=== PATIENT | male | born 1980 | race Hispanic/Latino ===

== ENCOUNTER 2018-12-14 18:55 | Emergency (ER) | payer SELFPAY ==
--- OUTSIDE RECORDS SUMMARY | 2018-12-14 18:58 | XMS REPORT ---
:1980 [facility] Mckeon [address] [place] [id number] Care Team Providers Name Role Phone Unavailable Unavailable Unavailable Problems This patient has no known problems. Allergies, Adverse Reactions, Alerts This patient has no known allergies or adverse reactions. Medications This patient has no known medications.
[2018-12-14] MEDS ORDERED: NA CHLORIDE 0.9% 1,000 ML ONE (19:48)
--- NOTE | 2018-12-14 20:10 | RAD REPORT ---
EXAM DESCRIPTION: RAD - Chest Single View - 12/14/2018 8:01 pm CLINICAL HISTORY: syncope Chest pain. COMPARISON: Chest Single View dated 07/02/2017; Chest Single View dated 04/05/2017 FINDINGS: Portable technique limits examination quality. The lungs are grossly clear. The heart is normal in size. No displaced fractures. IMPRESSION: No acute intrathoracic process suspected.
[2018-12-14 20:28] LABS: Absolute Lymphocytes (CBC) 2.2 K/uL (0.7-4.9); Basophils % 0.5 % (0-1.3); Eosinophils % 0.2 % (0-4.4); Hematocrit 46.4 % (39.6-49.0); MPV 9.5 fL (7.6-11.3); Monocytes % 8.7 % (3.3-12.3); RBC Red Blood Cell Count 4.86 M/uL (4.33-5.43)
[2018-12-14 20:29] LABS: Protime INR 1.02
[2018-12-14 20:44] LABS: ALT/SGPT 84 U/L (12-78); AST/SGOT 75 U/L (15-37); Albumin 3.7 g/dL (3.4-5.0); Alkaline Phosphatase 130 U/L (45-117); BUN Blood Urea Nitrogen 9 mg/dL (7-18); Bicarbonate 27 mmol/L (21-32); Bilirubin Direct 0.3 mg/dL (0-0.2); Bilirubin Total 0.7 mg/dL (0.2-1.0); Glucose Level 94 mg/dL (74-106); Magnesium 2.1 mg/dL (1.8-2.4); NT PRO-BNP 318 pg/mL (<125); Potassium 3.6 mmol/L (3.5-5.1); Sodium Level 141 mmol/L (136-145); Troponin (Emerg Dept Use Only) < 0.02 ng/mL (0.0-0.045)
--- NOTE | 2018-12-14 22:24 | ER ---
Nurse's Notes [facility] Name: Zana Salmon Age: 38 yrs Sex: Male : 1980 Arrival Date: 12/14/2018 Time: 19:07 Bed 5 Private MD: Diagnosis: Syncope and collapse Presentation: 12/14 19:08 Presenting complaint: Patient states: Syncopal episode while in alf, denies injury, hx ph of [place], denies chest pain, N/V or SOB. Transition of care: patient was not received from another setting of care. Onset of symptoms was December 14, 2018. Risk Assessment: Do you want to hurt yourself or someone else? Patient reports no desire to harm self or others. Initial Sepsis Screen: Does the patient meet any 2 criteria? No. Patient's initial sepsis screen is negative. Does the patient have a suspected source of infection? No. Patient's initial sepsis screen is negative. Care prior to arrival: None. 19:08 Method Of Arrival: Law Enforcement: 19:08 Acuity: DELANO 3 ph Historical: - Allergies: 19:10 No Known Allergies; hb - Home Meds: 19:10 aspirin Oral [Active]; atorvastatin oral oral [Active]; Lisinopril Oral [Active]; hb - PMHx: 19:10 Hepatitis; Hypertension; Myocardial infarction; hb - PSHx: 19:10 Heart stents; hb - Immunization history:: Adult Immunizations up to date. - Social history:: Smoking status: Patient/guardian denies using tobacco. - Ebola Screening: : No symptoms or risks identified at this time. Screenin:11 Abuse screen: Denies threats or abuse. Denies injuries from another. Nutritional hb screening: No deficits noted. Tuberculosis screening: No symptoms or risk factors identified. Fall Risk None identified. Assessment: 19:11 General: Appears in no apparent distress. comfortable, slender, Behavior is calm, ph cooperative, agitated, Denies fever. Pain: Denies pain. Neuro: Level of Consciousness is awake, alert, obeys commands, Oriented to person, place, time, situation. Cardiovascular: Reports syncope, Denies chest pain, fatigue, nausea, shortness of breath, Capillary refill < 3 seconds in bilateral fingers Patient's skin is warm and dry. Respiratory: Airway is patent Respiratory effort is even, unlabored, Respiratory pattern is regular, symmetrical. GI: No signs and/or symptoms were reported involving the gastrointestinal system. Derm: Skin is intact, is healthy with good turgor, Skin is pink, warm \T\ dry. Musculoskeletal: Circulation, motion, and sensation intact. Range of motion: intact in all extremities. 19:35 General: Appears in no apparent distress. comfortable, Behavior is calm, cooperative, rr5 appropriate for age, Denies fever. 19:35 Pain: Denies pain. Neuro: Level of Consciousness is awake, alert, obeys commands, rr5 Oriented to person, place, time, situation, Appropriate for age Flavorings Compounder are equal bilaterally Moves all extremities. Full function Gait is steady, Speech is normal. Cardiovascular: Capillary refill < 3 seconds in bilateral Patient's skin is warm and dry. Respiratory: Airway is patent Respiratory effort is even, unlabored, Respiratory pattern is regular, symmetrical. GI: No signs and/or symptoms were reported involving the gastrointestinal system. : No signs and/or symptoms were reported regarding the genitourinary system. EENT: No signs and/or symptoms were reported regarding the EENT system. Derm: Skin is intact, is healthy with good turgor, Skin is pink, warm \T\ dry. Musculoskeletal: Circulation, motion, and sensation intact. Range of motion: intact in all extremities. 20:30 Reassessment: Patient appears in no apparent distress at this time. Patient is alert, rr5 oriented x 3, equal unlabored respirations, skin warm/dry/pink. snacks given with good appetite. awaiting for laboratory results. 21:15 Reassessment: Patient appears in no apparent distress at this time. Patient is alert, rr5 oriented x 3, equal unlabored respirations, skin warm/dry/pink. repeat troponin extracted and sent to laboratory. 22:30 Reassessment: Patient appears in no apparent distress at this time. Patient is alert, rr5 oriented x 3, equal unlabored respirations, skin warm/dry/pink. discharge instruction given and explained without complaints made. escorted by alf security. Patient denies pain at this time. Patient states feeling better. Patient states symptoms have improved. Vital Signs: 19:05 BP 126 / 72; Pulse 53; Resp 16; Temp 98.4; Pulse Ox 97% on R/A; Weight 72.57 kg; Height hb 5 ft. 8 in. (172.72 cm); Pain 0/10; 20:00 BP 115 / 70; Pulse 56; Resp 16; Pulse Ox 98% ; rr5 21:00 BP 119 / 82; Pulse 59; Resp 17; Temp 98.3; Pulse Ox 99% ; rr5 22:05 BP 125 / 75; Pulse 57; Resp 16; Pulse Ox 99% ; Pain 0/10; rr5 22:25 BP 110 / 74; Pulse 85; Resp 16; Temp 98.5; Pulse Ox 99% on R/A; rr5 19:05 Body Mass Index 24.33 (72.57 kg, 172.72 cm) hb ED Course: 19:00 Patient has correct armband on for positive identification. Bed in low position. Call hb light in reach. Side rails up X 1. monitoring analyst on. Pulse ox on. NIBP on. 19:07 Patient arrived in ED. ph 19:07 Norma Parson FNP-C [facility]. snw 19:07 Alex Callahan MD is Attending Physician. snw 19:09 Arm band placed on. hb 19:11 Triage completed. ph 19:30 Damion Lai, MAGDALENA is Primary Nurse. rr5 19:39 XRAY Chest (1 view) In Process Unspecified. EDMS 20:15 Inserted saline lock: 20 gauge in left forearm, using aseptic technique. Blood rr5 collected. 21:20 Repeat lab(s) drawn. by nm, sent to lab. rr5 22:30 No provider procedures requiring assistance completed. IV discontinued, intact, rr5 bleeding controlled, No redness/swelling at site. Pressure dressing applied. Administered Medications: 20:15 Drug: NS 0.9% 1000 ml Route: IV; Rate: 75 ml/hr; Site: left forearm; rr5 22:20 Follow up: Response: No adverse reaction; IV Status: Order to discontinue infusion; IV rr5 Intake: 150ml Intake: 22:20 IV: 150ml; Total: 150ml. rr5 Outcome: 22:23 Discharge ordered by . snw 22:30 Discharged to Law Enforcement rr5 22:30 Condition: stable 22:30 Discharge instructions given to patient, Instructed on discharge instructions, follow up and referral plans. Demonstrated understanding of instructions, follow-up care. 22:32 Patient left the ED. rr5 Signatures: Dispatcher [employer] EDMS Norma Parson, ARIELLEC COMPLAINT OPERATOR-Jcw Dalila Peoples, RN RN Samantha Duarte RN RN Damion Talamantes RN RN rr5
--- NOTE | 2018-12-14 22:24 | EDPHYS ---
Physician Documentation [facility] Name: Zana Salmon Age: 38 yrs Sex: Male : 1980 Arrival Date: 12/14/2018 Time: 19:07 Bed 5 Private MD: ED Physician Alex Callahan HPI: 12/14 19:07 This 38 yrs old Male presents to ER via Unassigned with complaints of syncope. snw 19:07 The patient has experienced syncope, collapsed. Onset: The symptoms/episode snw began/occurred suddenly, and became persistent. Duration: This was a single episode, that lasted an unknown period of time. Context: the episode(s) was witnessed, by police, occurred on a street or driveway, occurred while the patient was being arrested. Just prior to the episode the patient experienced no apparent symptoms. Associated injury: The patient did not suffer any apparent associated injury. Associated signs and symptoms: The patient has no apparent associated signs or symptoms. MA x one. The patient has not recently seen a physician. Historical: - Allergies: 19:10 No Known Allergies; hb - Home Meds: 19:10 aspirin Oral [Active]; atorvastatin oral oral [Active]; Lisinopril Oral [Active]; hb - PMHx: 19:10 Hepatitis; Hypertension; Myocardial infarction; hb - PSHx: 19:10 Heart stents; hb - Immunization history:: Adult Immunizations up to date. - Social history:: Smoking status: Patient/guardian denies using tobacco. - Ebola Screening: : No symptoms or risks identified at this time. ROS: 19:07 Constitutional: Negative for fever, chills, and weight loss, Eyes: Negative for injury, snw pain, redness, and discharge, ENT: Negative for injury, pain, and discharge, Neck: Negative for injury, pain, and swelling, Cardiovascular: Negative for chest pain, palpitations, and edema, Respiratory: Negative for shortness of breath, cough, wheezing, and pleuritic chest pain, Abdomen/GI: Negative for abdominal pain, nausea, vomiting, diarrhea, and constipation, Back: Negative for injury and pain, : Negative for injury, bleeding, discharge, and swelling, MS/Extremity: Negative for injury and deformity, Skin: Negative for injury, rash, and discoloration. 19:07 Neuro: Positive for syncope. 19:07 Psych: Positive for anxiety. Exam: 19:10 Constitutional: This is a well developed, well nourished patient who is awake, alert, snw and in no acute distress. Head/Face: Normocephalic, atraumatic. Eyes: Pupils equal round and reactive to light, extra-ocular motions intact. Lids and lashes normal. Conjunctiva and sclera are non-icteric and not injected. Cornea within normal limits. Periorbital areas with no swelling, redness, or edema. ENT: Nares patent. No nasal discharge, no septal abnormalities noted. Tympanic membranes are normal and external auditory canals are clear. Oropharynx with no redness, swelling, or masses, exudates, or evidence of obstruction, uvula midline. Mucous membranes moist. Neck: Trachea midline, no thyromegaly or masses palpated, and no cervical lymphadenopathy. Supple, full range of motion without nuchal rigidity, or vertebral point tenderness. No Meningismus. Chest/axilla: Normal chest wall appearance and motion. Nontender with no deformity. No lesions are appreciated. Cardiovascular: Regular rate and rhythm with a normal S1 and S2. No gallops, murmurs, or rubs. Normal PMI, no JVD. No pulse deficits. Respiratory: Lungs have equal breath sounds bilaterally, clear to auscultation and percussion. No rales, rhonchi or wheezes noted. No increased work of breathing, no retractions or nasal flaring. Abdomen/GI: Soft, non-tender, with normal bowel sounds. No distension or tympany. No guarding or rebound. No evidence of tenderness throughout. Back: No spinal tenderness. No costovertebral tenderness. Full range of motion. Skin: Warm, dry with normal turgor. Normal color with no rashes, no lesions, and no evidence of cellulitis. MS/ Extremity: Pulses equal, no cyanosis. Neurovascular intact. Full, normal range of motion. Neuro: Awake and alert, GCS 15, oriented to person, place, time, and situation. Cranial nerves II-XII grossly intact. Motor strength 5/5 in all extremities. Sensory grossly intact. Cerebellar exam normal. Normal gait. Psych: Awake, alert, with orientation to person, place and time. Behavior, mood, and affect are within normal limits. Vital Signs: 19:05 BP 126 / 72; Pulse 53; Resp 16; Temp 98.4; Pulse Ox 97% on R/A; Weight 72.57 kg; Height hb 5 ft. 8 in. (172.72 cm); Pain 0/10; 20:00 BP 115 / 70; Pulse 56; Resp 16; Pulse Ox 98% ; rr5 21:00 BP 119 / 82; Pulse 59; Resp 17; Temp 98.3; Pulse Ox 99% ; rr5 22:05 BP 125 / 75; Pulse 57; Resp 16; Pulse Ox 99% ; Pain 0/10; rr5 22:25 BP 110 / 74; Pulse 85; Resp 16; Temp 98.5; Pulse Ox 99% on R/A; rr5 19:05 Body Mass Index 24.33 (72.57 kg, 172.72 cm) hb MDM: 19:11 Patient medically screened. snw 22:24 ECG was reviewed by the Attending Physician. Data reviewed: vital signs, nurses notes. snw Data interpreted: Pulse oximetry: on room air is 99 %. Interpretation: normal. Counseling: I had a detailed discussion with the patient and/or guardian regarding: the historical points, exam findings, and any diagnostic results supporting the discharge/admit diagnosis, the presence of at least one elevated blood pressure reading (>120/80) during this emergency department visit, lab results, radiology results, the need for outpatient follow up, to return to the emergency department if symptoms worsen or persist or if there are any questions or concerns that arise at home. Special discussion: Based on the patient's history, exam, and Dx evaluation, there is no indication for emergent intervention or inpatient Tx. It is understood by the patient/guardian that if the Sx's persist or worsen they need to return immediately for re-evaluation. I have referred the patient to see his PCP for further evaluation of high blood pressure. Based on the history and exam findings, there is no indication for further emergent testing or inpatient evaluation. I discussed with the patient/guardian the need to see the pediatric care coordinator for further evaluation of the symptoms. I discussed with the patient/guardian the need to see the primary care provider for further evaluation of the symptoms. 12/14 19:12 Order name: Basic Metabolic Panel snw 12/14 19:12 Order name: CBC with Diff snw 12/14 19:12 Order name: LFT's snw 12/14 19:12 Order name: Magnesium [facility] 12/14 19:12 Order name: NT PRO-BNP; Complete Time: 20:45 snw 12/14 19:12 Order name: PT-INR; Complete Time: 20:32 snw 12/14 19:12 Order name: Troponin (emerg Dept Use Only); Complete Time: 20:45 snw 12/14 19:12 Order name: XRAY Chest (1 view); Complete Time: 20:13 snw 12/14 19:13 Order name: Basic Metabolic Panel; Complete Time: 20:45 EDMS 12/14 19:13 Order name: CBC with Automated Diff; Complete Time: 20:32 EDMS 12/14 19:13 Order name: Liver (Hepatic) Function; Complete Time: 20:45 EDMS 12/14 19:13 Order name: Magnesium; Complete Time: 20:45 EDMS 12/14 21:01 Order name: Troponin (emerg Dept Use Only); Complete Time: 21:57 snw 12/14 19:12 Order name: EKG; Complete Time: 19:13 w 12/14 19:12 Order name: Cardiac monitoring; Complete Time: 19:14 w 12/14 19:12 Order name: EKG - Nurse/Tech; Complete Time: 20:24 w 12/14 19:12 Order name: IV Saline Lock; Complete Time: 20:24 w 12/14 19:12 Order name: Labs collected and sent; Complete Time: 20:24 w 12/14 19:12 Order name: O2 Per Protocol; Complete Time: 19:14 w 12/14 19:12 Order name: O2 Sat Monitoring; Complete Time: 19:14 w 12/14 21:01 Order name: EKG; Complete Time: 21:02 snw Administered Medications: 20:15 Drug: NS 0.9% 1000 ml Route: IV; Rate: 75 ml/hr; Site: left forearm; rr5 22:20 Follow up: Response: No adverse reaction; IV Status: Order to discontinue infusion; IV rr5 Intake: 150ml Disposition: 12/15 00:38 Co-signature as Attending Physician, Alex Callahan MD. pkl Disposition: 12/14/18 22:23 Discharged to Home. Impression: Syncope and collapse. - Condition is Stable. - Discharge Instructions: Hypertension, Syncope. - Medication Reconciliation Form, Thank You Letter, Antibiotic Education, Prescription Opioid Use form. - Follow up: Private Physician; When: Tomorrow; Reason: Recheck today's complaints, Continuance of care, Re-evaluation by your physician. Follow up: Emergency Department; When: As needed; Reason: Worsening of condition. Signatures: Dispatcher [employer] EDMS Alex Callahan MD MD pkl Therrien, Shelly, DIGITAL FORENSICS INVESTIGATOR-C DIGITAL FORENSICS INVESTIGATOR-Csnw Samantha Dawson, MAGDALENA RN Damion Lai RN RN rr5 Corrections: (The following items were deleted from the chart) 12/14 22:32 22:23 12/14/2018 22:23 Discharged to Home. Impression: Syncope and collapse. Condition rr5 is Stable. Forms are Medication Reconciliation Form, Thank You Letter, Antibiotic Education, Prescription Opioid Use. Follow up: Private Physician; When: Tomorrow; Reason: Recheck today's complaints, Continuance of care, Re-evaluation by your physician. Follow up: Emergency Department; When: As needed; Reason: Worsening of condition. snw
--- NOTE | 2018-12-15 07:21 | EKG ---
Test Date: 2018-12-14 Test Time: 20:13:55 Plastic Tile Setter: NIKITA MEASUREMENT RESULTS: Intervals: Rate: 55 NM: 140 QRSD: 98 QT: 414 QTc: 396 Karthaus: P: 58 NM: 140 QRS: 108 T: 15 INTERPRETIVE STATEMENTS: Sinus bradycardia Rightward axis Borderline ECG Compared to ECG 07/02/2017 17:05:13 Sinus rhythm no longer present Sinus arrhythmia no longer present Electronically Signed On 12-15-18 07:20:36 CDT by Sanket Cedeño
--- NOTE | 2018-12-15 07:21 | EKG ---
Test Date: 2018-12-14 Test Time: 21:30:07 Test And Turn Up Technician: RR MEASUREMENT RESULTS: Intervals: Rate: 52 WY: 148 QRSD: 106 QT: 436 QTc: 405 [place]: P: 65 WY: 148 QRS: 104 T: 16 INTERPRETIVE STATEMENTS: Sinus bradycardia Rightward axis Borderline ECG Compared to ECG 12/14/2018 20:13:55 No significant changes Electronically Signed On 12-15-18 07:20:33 CDT by Sanket Cedeño
== END 2018-12-14 22:32 | disposition home or self-care (01) ==
LOC: ER 18:55
DX: R55 Syncope and collapse (principal); I10 Essential (primary) hypertension; I25.2 Old myocardial infarction; Z79.82 Long term (current) use of aspirin
CPT/HCPCS: 36415; 71045; 80048; 80076; 83735; 83880; 84484; 85025; 85610; 93005; 96360; 96361; 99284; J7030

== ENCOUNTER 2019-01-13 14:44 | Observation (INO) | payer SELFPAY ==
--- OUTSIDE RECORDS SUMMARY | 2019-01-13 14:47 | XMS REPORT ---
:1980 [facility] Mckeon [address] [place] [id number] Care Team Providers Name Role Phone Unavailable Unavailable Unavailable Problems This patient has no known problems. Allergies, Adverse Reactions, Alerts This patient has no known allergies or adverse reactions. Medications This patient has no known medications.
--- NOTE | 2019-01-13 15:45 | RAD REPORT ---
EXAM DESCRIPTION: RAD - Chest Single View - 01/13/2019 3:40 pm CLINICAL HISTORY: CHEST PAIN Chest pain. COMPARISON: Chest Single View dated 12/14/2018; Chest Single View dated 07/02/2017; Chest Single View d ated 04/05/2017 FINDINGS: Portable technique limits examination quality. The lungs are grossly clear. The heart is normal in size. No displaced fractures. IMPRESSION: No acute intrathoracic process suspected.
[2019-01-13 15:54] LABS: Absolute Lymphocytes (CBC) 3.3 K/uL (0.7-4.9); Basophils % 0.3 % (0-1.3); Hematocrit 46.8 % (39.6-49.0); Lymphocytes % 47.9 % (15.3-44.8); RBC Red Blood Cell Count 4.97 M/uL (4.33-5.43)
[2019-01-13] MEDS ORDERED: NA CHLORIDE 0.9% 1,000 ML ONE (15:55)
[2019-01-13 15:58] LABS: Protime INR 1.01
[2019-01-13 16:29] LABS: ALT/SGPT 60 U/L (12-78); AST/SGOT 53 U/L (15-37); Albumin 3.8 g/dL (3.4-5.0); Alkaline Phosphatase 120 U/L (45-117); BUN Blood Urea Nitrogen 9 mg/dL (7-18); Bicarbonate 27 mmol/L (21-32); Bilirubin Direct 0.3 mg/dL (0-0.2); Bilirubin Total 1.1 mg/dL (0.2-1.0); Glucose Level 78 mg/dL (74-106); Potassium 3.7 mmol/L (3.5-5.1); Protein, Total 8.1 g/dL (6.4-8.2); Sodium Level 140 mmol/L (136-145)
[2019-01-13 16:30] LABS: Creatine Phosphokinase 122 U/L (39-308); Magnesium 2.4 mg/dL (1.8-2.4); NT PRO-BNP 262 pg/mL (<125); Troponin (Emerg Dept Use Only) < 0.02 ng/mL (0.0-0.045)
[2019-01-13 16:43] LABS: Urine Blood TRACE (NEG); Urine Glucose NEGATIVE (NEG); Urine Protein NEGATIVE (NEG)
--- NOTE | 2019-01-13 17:12 | ER ---
Nurse's Notes [facility] Name: Zana Salmon Age: 38 yrs Sex: Male : 1980 Arrival Date: 01/13/2019 Time: 14:47 Bed 18 Private MD: Diagnosis: Chest pain, unspecified Presentation: 01/13 14:50 Presenting complaint: EMS states: chest pain that started while working outside, denies em nausea or vomiting, described as pressure, pt reports "I feel dehydrated" hx of MT and cardiac stents. Transition of care: patient was not received from another setting of care. Onset of symptoms was January 13, 2019. Risk Assessment: Do you want to hurt yourself or someone else? Patient reports no desire to harm self or others. Initial Sepsis Screen: Does the patient meet any 2 criteria? No. Patient's initial sepsis screen is negative. Does the patient have a suspected source of infection? No. Patient's initial sepsis screen is negative. Care prior to arrival: None. 14:50 Method Of Arrival: EMS: [facility] em 15:30 Acuity: DELANO 3 la1 Historical: - Allergies: 14:53 No Known Allergies; em - Home Meds: 14:53 Aspirin Oral [Active]; atorvastatin Oral [Active]; lisinopril Oral [Active]; em - PMHx: 14:53 Hepatitis; Hypertension; Myocardial infarction; em - PSHx: 14:53 Heart stents; em - Immunization history:: Adult Immunizations not up to date. - Social history:: Smoking status: Patient uses tobacco products, denies chronic smoking, but will smoke occasionally. - Ebola Screening: : Patient negative for fever greater than or equal to 101.5 degrees Fahrenheit, and additional compatible Ebola Virus Disease symptoms Patient denies exposure to infectious person Patient denies travel to an Ebola-affected area in the 21 days before illness onset No symptoms or risks identified at this time. Screenin:53 Abuse screen: Denies threats or abuse. Nutritional screening: No deficits noted. em Tuberculosis screening: No symptoms or risk factors identified. Fall Risk None identified. Assessment: 14:53 General: Appears in no apparent distress. comfortable, Behavior is calm, cooperative, em Denies fever. Pain: Complains of pain in mid-sternal area Pain currently is 5 out of 10 on a pain scale. Pain began 1 hour ago. Neuro: Level of Consciousness is awake, alert, obeys commands, Oriented to person, place, time, situation, Denies weakness. Cardiovascular: Capillary refill < 3 seconds Patient's skin is warm and dry. Rhythm is sinus rhythm. Respiratory: Airway is patent Respiratory effort is even, unlabored, Respiratory pattern is regular, symmetrical. GI: Patient currently denies nausea, vomiting. Derm: Skin is intact, is healthy with good turgor, Skin is pink, warm \\T\\ dry. Musculoskeletal: Capillary refill < 3 seconds, Range of motion: intact in all extremities. 16:04 Reassessment: Patient appears in no apparent distress at this time. Patient states em feeling better. 16:47 Reassessment: Patient appears in no apparent distress at this time. Patient and/or em family updated on plan of care and expected duration. Pain level reassessed. Patient is alert, oriented x 3, equal unlabored respirations, skin warm/dry/pink. 17:35 Reassessment: Patient appears in no apparent distress at this time. Patient and/or em family updated on plan of care and expected duration. Pain level reassessed. Patient is alert, oriented x 3, equal unlabored respirations, skin warm/dry/pink. Dr. Alvares at bedside Patient states feeling better. 18:21 Reassessment: Patient appears in no apparent distress at this time. Patient and/or em family updated on plan of care and expected duration. Pain level reassessed. Patient is alert, oriented x 3, equal unlabored respirations, skin warm/dry/pink. Patient denies pain at this time. Patient states feeling better. Patient states symptoms have improved. Vital Signs: 14:53 BP 103 / 70; Pulse 74; Resp 18; Temp 98.4(O); Pulse Ox 99% on R/A; Weight 72.57 kg; em Height 5 ft. 8 in. (172.72 cm); Pain 5/10; 16:05 BP 132 / 86; Pulse 68; Resp 18; Pulse Ox 100% on R/A; Pain 5/10; em 17:35 BP 129 / 86; Pulse 71; Resp 16; Pulse Ox 99% on R/A; em 18:28 BP 123 / 92; Pulse 55; Resp 18; Pulse Ox 99% on R/A; Pain 0/10; em 14:53 Body Mass Index 24.33 (72.57 kg, 172.72 cm) em ED Course: 14:47 Patient arrived in ED. ms 14:49 Henry Grayson LVN is Primary Nurse. em 14:53 Arm band placed on. em 14:53 Patient has correct armband on for positive identification. Bed in low position. Call em light in reach. disability program navigator on. Pulse ox on. NIBP on. 14:53 Maintain EMS IV. Dressing intact. Good blood return noted. Site clean \\T\\ dry. Gauge \\T\\ em site: 20 LAC. 15:23 Greyson Espinal PA is PHCP. [facility] 15:23 Froylan Aceves MD is Attending Physician. m 15:24 EKG done, by mechanical tech. reviewed by Froylan Aceves MD. 3 15:30 Triage completed. la1 15:41 XRAY Chest (1 view) In Process Unspecified. EDMS 17:11 Joselito Alvares MD is Hospitalizing Provider. [facility] 18:20 No provider procedures requiring assistance completed. Patient admitted, IV remains in em place. Administered Medications: 16:00 Drug: NS 0.9% 1000 ml Route: IV; Rate: 1 bolus; Site: right forearm; em 17:11 Follow up: IV Status: Completed infusion; IV Intake: 1000ml em 17:20 Drug: Aspirin Chewable Tablet 324 mg Route: PO; rv 18:22 Follow up: Response: No adverse reaction em Intake: 17:11 IV: 1000ml; Total: 1000ml. em Outcome: 17:11 Decision to Hospitalize by Provider. [facility] 18:20 Admitted to Tele accompanied by tech, via wheelchair, room 212, with chart, Report em called to MAGDALENA Bennett 18:20 Condition: good 18:20 Instructed on the need for admit, Demonstrated understanding of instructions. 18:29 Patient left the ED. em Signatures: Dispatcher [employer] EDMS Greyson Espinal PA PA jmm Munoz, Edgar, LVN LVN em Evelyne Ulloa ms GarciaSanto allen, RN RN la1 Yanna Lewis sm3 Jerry Krause, RN RN rv
--- NOTE | 2019-01-13 17:13 | EDPHYS ---
Physician Documentation [facility] Name: Zana Salmon Age: 38 yrs Sex: Male : 1980 Arrival Date: 01/13/2019 Time: 14:47 Bed 18 Private MD: ED Physician Froylan Aceves HPI: 01/13 15:20 This 38 yrs old Male presents to ER via EMS with complaints of Chest Pain. jmm 15:20 The patient or guardian reports chest pain that is located primarily in the substernal [facility] area. Onset: .5 hour(s) ago. The pain does not radiate. Duration: The patient or guardian reports a single episode, that is still ongoing, but improving. Modifying factors: The symptoms are alleviated by nothing. the symptoms are aggravated by nothing. This is a 38 year old male with a history of htn, [place], CAD that presents to the ED with complaints of substernal chest pain which began approx 45 min prior to arrival. Patient describes the pain as if the wind got knocked out of his chest. States symptoms are no improving. . Historical: - Allergies: 14:53 No Known Allergies; em - Home Meds: 14:53 Aspirin Oral [Active]; atorvastatin Oral [Active]; lisinopril Oral [Active]; em - PMHx: 14:53 Hepatitis; Hypertension; Myocardial infarction; em - PSHx: 14:53 Heart stents; em - Immunization history:: Adult Immunizations not up to date. - Social history:: Smoking status: Patient uses tobacco products, denies chronic smoking, but will smoke occasionally. - Ebola Screening: : Patient negative for fever greater than or equal to 101.5 degrees Fahrenheit, and additional compatible Ebola Virus Disease symptoms Patient denies exposure to infectious person Patient denies travel to an Ebola-affected area in the 21 days before illness onset No symptoms or risks identified at this time. ROS: 15:20 Constitutional: Negative for fever, chills, and weight loss. jmm 15:20 Abdomen/GI: Negative for abdominal pain, nausea, vomiting, diarrhea, and constipation. 15:20 Cardiovascular: Positive for chest pain. 15:20 Respiratory: Positive for shortness of breath. 15:20 All other systems are negative. Exam: 15:20 Constitutional: This is a well developed, well nourished patient who is awake, alert, jmm and in no acute distress. Head/Face: atraumatic. Eyes: EOMI, no conjunctival erythema appreciated ENT: Moist Mucus Membranes Neck: Trachea midline, Supple Chest/axilla: Normal chest wall appearance and motion. 15:20 Abdomen/GI: Non distended, soft Back: Normal ROM Skin: General appearance color normal MS/ Extremity: Moves all extremities, no obvious deformities appreciated, no edema noted to the lower extremities Neuro: Awake and alert, normal gait Psych: Behavior is normal, Mood is normal, Patient is cooperative and pleasant 15:20 Cardiovascular: Rate: normal, Rhythm: regular. 15:20 Respiratory: the patient does not display signs of respiratory distress, Respirations: normal, Breath sounds: are clear throughout. 15:47 ECG was reviewed by the Attending Physician. [facility] Vital Signs: 14:53 BP 103 / 70; Pulse 74; Resp 18; Temp 98.4(O); Pulse Ox 99% on R/A; Weight 72.57 kg; em Height 5 ft. 8 in. (172.72 cm); Pain 5/10; 16:05 BP 132 / 86; Pulse 68; Resp 18; Pulse Ox 100% on R/A; Pain 5/10; em 17:35 BP 129 / 86; Pulse 71; Resp 16; Pulse Ox 99% on R/A; em 18:28 BP 123 / 92; Pulse 55; Resp 18; Pulse Ox 99% on R/A; Pain 0/10; em 14:53 Body Mass Index 24.33 (72.57 kg, 172.72 cm) em MDM: 15:27 Patient medically screened. [facility] 17:08 The patient was given aspirin in the Emergency Department. Data reviewed: vital signs, [facility] nurses notes, lab test result(s), radiologic studies, plain films. ED course: Patient will be admitted due to cardiac risk factors. I discussed the patient with Dr. Alvares whom accepted admission. . 01/13 15:25 Order name: Basic Metabolic Panel; Complete Time: 16:31 [facility] 01/13 15:25 Order name: CBC with Diff; Complete Time: 16:31 [facility] 01/13 15:25 Order name: LFT's; Complete Time: 16:31 [facility] 01/13 15:25 Order name: Magnesium; Complete Time: 16:31 [facility] 08/16 15:25 Order name: NT PRO-BNP; Complete Time: 16:31 [facility] 01/13 15:25 Order name: PT-INR; Complete Time: 16:31 [facility] 01/13 15:25 Order name: Troponin (emerg Dept Use Only); Complete Time: 16:31 [facility] 01/13 15:25 Order name: XRAY Chest (1 view); Complete Time: 15:47 [facility] 01/13 15:25 Order name: EKG; Complete Time: 15:27 [facility] 01/13 15:25 Order name: Cardiac monitoring; Complete Time: 15:47 [facility] 01/13 15:25 Order name: CPK; Complete Time: 16:31 [facility] 01/13 16:38 Order name: Urine Dipstick--Ancillary (enter results); Complete Time: 16:44 01/13 15:25 Order name: EKG - Nurse/Tech; Complete Time: 15:47 [facility] 01/13 15:25 Order name: IV Saline Lock; Complete Time: 15:47 [facility] 01/13 15:25 Order name: Labs collected and sent; Complete Time: 15:47 [facility] 01/13 15:25 Order name: O2 Per Protocol; Complete Time: 15:47 [facility] 01/13 15:25 Order name: O2 Sat Monitoring; Complete Time: 15:47 [facility] 01/13 15:26 Order name: Urine Dipstick-Ancillary (obtain specimen); Complete Time: 16:38 jmm Administered Medications: 16:00 Drug: NS 0.9% 1000 ml Route: IV; Rate: 1 bolus; Site: right forearm; em 17:11 Follow up: IV Status: Completed infusion; IV Intake: 1000ml em 17:20 Drug: Aspirin Chewable Tablet 324 mg Route: PO; rv 18:22 Follow up: Response: No adverse reaction em Disposition: 18:51 Co-signature as Attending Physician, Froylan Aceves MD. rn Disposition: 01/13/19 17:11 Hospitalization ordered by Joselito Alvares for Observation. Preliminary diagnosis is Chest pain, unspecified. - Bed requested for Telemetry/MedSurg (observation). - Status is Observation. em - Condition is Stable. - Problem is an acute exacerbation. - Symptoms are resolved. UTI on Admission? No Signatures: Dispatcher [employer] Yaquelin Mckenna RN RN Greyson Spears PA PA [facility] Henry Grayson, HYBRID TESTER HYBRID TESTER em Froylan Aceves MD MD rn Vicente, Ronaldo, RN RN rv Corrections: (The following items were deleted from the chart) 16:26 15:47 Rate is 87 beats/min. Rhythm is regular. QRS [place] is Normal. AR interval is [facility] normal. QRS interval is normal. QT interval is normal. No Q waves. T waves are Normal. No ST changes noted. Reviewed by me. [facility] 18:07 17:11 Hospitalization Ordered by Joselito Alvares MD for Observation. Preliminary diagnosis dw is Chest pain, unspecified. Bed requested for Telemetry/MedSurg (observation). Status is Observation. Condition is Stable. Problem is an acute exacerbation. Symptoms are resolved. UTI on Admission? No. [facility] 18:29 18:07 01/13/2019 17:11 Hospitalization Ordered by Joselito Alvares MD for Observation. em Preliminary diagnosis is Chest pain, unspecified. Bed requested for Telemetry/MedSurg (observation). Status is Observation. Condition is Stable. Problem is an acute exacerbation. Symptoms are resolved. UTI on Admission? No. dw
[2019-01-13] MEDS ORDERED: ASPIRIN 81 MG CHEWABLE TABLET ONE (17:17)
--- NOTE | 2019-01-13 17:34 | P.HP ---
Certification for Inpatient Patient admitted to: Observation With expected LOS: <2 Midnights Practitioner: I am a practitioner with admitting privileges, knowledge of patient current condition, hospital course, and medical plan of care. Services: Services provided to patient in accordance with Admission requirements found in Title 42 Section 412.3 of the Code of Federal Regulations Patient History Date of Service: 01/13/19 Primary Care Provider: None Reason for admission: Chest pain History of Present Illness: This is a 38 yr old male with a PMH of Hep C, HLD, CAD with prior stent placement who presented with chest pain. Per patient, he had a sharp, throbbing pain in the substernal region without any radiation that started this morning. He states he was out in the heat, in his car where the AC was not working when he started feeling this way. No alleviating or exacerbating factors. He states this was worse than the pain he had when he had his heart attack. He states that this was associated with episode or shortness of breath. He denies any associated nausea, vomiting, abdominal cramping/pain, lightheadedness, dizziness, vision changes, speech changes or any complaints. He states that he has been compliant with his aspirin and Plavix. In the ED, BP was 103/70, HR 74, RR 18, afebrile at 98.4, satting 99% on RA. He has a BMI of 24.33. His labs remarkable for elevated TB, DB and AST. Troponin was negative x 1, and EKG with nonspecific changes. He received IVF and aspirin in the ED. At the time of my exam, he was AAOx3, in no acute distress and hemodynamically stable. Allergies No Known Allergies Allergy (Verified 04/05/17 21:52) Home medications list reviewed: Yes Home Medications: Aspirin [Aspirin EC 81 MG] 81 mg PO DAILY #30 tablet. 04/06/17 Atorvastatin Calcium [Lipitor*] 20 mg PO DAILY #30 tab 04/06/17 Clopidogrel Bisulfate [Plavix*] 75 mg PO DAILY #30 tablet 04/06/17 Lisinopril [Prinivil*] 5 mg PO DAILY #30 tab 04/06/17 - Past Medical/Surgical History Diabetic: No -: HTN -: PR -: Heart Stents placement -: Hep C -: Stent Placement - Social History Alcohol use: Yes CD- Drugs: Yes Caffeine use: Yes Review of Systems 10-point ROS is otherwise unremarkable Physical Examination - Physical Exam General: Alert, In no apparent distress, Oriented x3 HEENT: Atraumatic, PERRLA, Mucous membr. moist/pink, EOMI, Sclerae nonicteric Neck: Supple, 2+ carotid pulse no bruit, No LAD, Without JVD or thyroid abnormality Respiratory: Clear to auscultation bilaterally, Normal air movement Cardiovascular: Regular rate/rhythm, Normal S1 S2 Gastrointestinal: Normal bowel sounds, No tenderness Musculoskeletal: No tenderness Integumentary: No rashes Neurological: Normal gait, Normal speech, Normal strength at 5/5 x4 extr, Normal tone, Normal affect Lymphatics: No axilla or inguinal lymphadenopathy - Studies Laboratory Data (last 24 hrs) 01/13/19 15:43: PT 11.9, INR 1.01 01/13/19 15:43: WBC 6.9, Hgb 15.9, Hct 46.8, Plt Count 232 01/13/19 15:43: Sodium 140, Potassium 3.7, BUN 9, Creatinine 0.76, Glucose 78, Magnesium 2.4, Total Bilirubin 1.1 H, AST 53 H, ALT 60, Alkaline Phosphatase 120 H Assessment and Plan - Problems (Diagnosis) (1) Chest pain Onset Date: 04/06/17 Current Visit: No Status: Acute Plan: Chest pain x 1 day acute. -EKG with no significant changes -Troponin x 1 negative. -ASA, Plavix, Statin, BB and mary inhibitor. -Cardiology consult. Awaiting reccs -IV morphine and nitro prn for pain. -Tele monitoring Qualifiers: Chest pain type: other chest pain Qualified Code(s): R07.89 - Other chest pain; R07.8 - Other chest pain (2) CAD (coronary artery disease) Onset Date: 04/06/17 Current Visit: No Status: Chronic Plan: H/o PR with stent placement at [facility] in November 2016. Qualifiers: Coronary Disease-Associated Artery/Lesion type: [place] artery [place] vs. transplanted heart: [place] heart Associated angina: with stable angina Qualified Code(s): I25.118 - Atherosclerotic heart disease of [place] coronary artery with other forms of angina pectoris (3) History of hepatitis Current Visit: No Status: Chronic Plan: History of Hep C. -Will continue to monitor his AST/ALT -Will get abd u/s due to elevated Tbili (4) Hyperlipemia Onset Date: 04/06/17 Current Visit: No Status: Chronic Qualifiers: Hyperlipidemia type: mixed hyperlipidemia Qualified Code(s): E78.2 - Mixed hyperlipidemia - Plan DVT prophylaxis: Aspirin/Plavix GI prophylaxis: None Diet: Heart healthy Disposition: Admit to floor, trend troponins, monitor via tele. Pending cardiology evaluation. Anticipate discharge in the next 24-48 hr with outpatient cardiology follow up. - Advance Directives Does patient have a Living Will: No Does patient have a Durable POA for Healthcare: No Time Spent Managing Pts Care (In Minutes): 55
[2019-01-13] MEDS ORDERED: NITROGLYCERIN 0.4 MG/TAB SL PRN (18:37)
[2019-01-13] MEDS ORDERED: MORPHINE 4 MG/ML SYR IV PRN (18:37)
[2019-01-13] MEDS: METOPROLOL TAR 50 MG TAB PO SCH (20:39)
[2019-01-13] MEDS ORDERED: ATORVASTATIN 40 MG TAB PO SCH (21:00)
[2019-01-14 06:03] LABS: Absolute Lymphocytes (CBC) 2.8 K/uL (0.7-4.9); Basophils % 0.4 % (0-1.3); Hematocrit 45.7 % (39.6-49.0); Lymphocytes % 49.4 % (15.3-44.8); MPV 10.2 fL (7.6-11.3); RBC Red Blood Cell Count 4.81 M/uL (4.33-5.43)
[2019-01-14] MEDS: METOPROLOL TAR 50 MG TAB PO SCH (08:31)
[2019-01-14] MEDS ORDERED: CLOPIDOGREL 75 MG TABLET PO SCH (09:00)
[2019-01-14] MEDS ORDERED: ASPIRIN EC 81 MG TAB PO SCH (09:00)
[2019-01-14] MEDS ORDERED: LISINOPRIL 10 MG TAB PO SCH (09:00)
--- NOTE | 2019-01-14 09:10 | EKG ---
Test Date: 2019-01-13 Test Time: 15:20:43 Wire Straightener: LBIIA MEASUREMENT RESULTS: Intervals: Rate: 70 WA: 116 QRSD: 92 QT: 386 QTc: 416 [place]: P: 75 WA: 116 QRS: 107 T: 26 INTERPRETIVE STATEMENTS: Normal sinus rhythm Rightward axis Borderline ECG Compared to ECG 12/14/2018 21:30:07 Sinus bradycardia no longer present Electronically Signed On 01-14-19 09:08:01 CDT by Sanket Cedeño
--- NOTE | 2019-01-14 10:08 | P.DS ---
Admission Date: 01/13/19 Discharge Date: 01/14/19 Primary Care Provider: None Disposition: ROUTINE DISCHARGE Discharge Condition: FAIR Reason for Admission: Chest pain Brief History of Present Illness: Patient is 38 years of age with a history of coronary artery disease the admitted with sudden onset of chest pain Hospital Course: No problems during the stay his pain resolved upon in's negative EKG normal seen by Cardiology at the time of discharge he was alert oriented responsive vital signs all stable chest clear cardiovascular system os sounds normal extremities no edema oxygenation vital signs all stable patient to resume all his home medication discuss with cardiology E he is to be discharged home to follow up as an outpatient labs otherwise unremarkable Vital Signs/Physical Exam: Temp Pulse Resp BP Pulse Ox 97.1 F 54 15 110/69 100 01/14/19 08:00 01/14/19 08:00 01/14/19 08:00 01/14/19 08:00 01/14/19 08:00 Laboratory Data at Discharge: WBC 5.7 K/uL (4.3-10.9) D 01/14/19 05:33 Hgb 15.7 g/dL (13.6-17.9) 01/14/19 05:33 Hct 45.7 % (39.6-49.0) 01/14/19 05:33 Plt Count 265 K/uL (152-406) 01/14/19 05:33 PT 11.9 SECONDS (9.5-12.5) 01/13/19 15:43 INR 1.01 01/13/19 15:43 Sodium 140 mmol/L (136-145) 01/13/19 15:43 Potassium 3.7 mmol/L (3.5-5.1) 01/13/19 15:43 BUN 9 mg/dL (7-18) 01/13/19 15:43 Creatinine 0.76 mg/dL (0.55-1.3) 01/13/19 15:43 Glucose 78 mg/dL (74-106) 01/13/19 15:43 Magnesium 2.4 mg/dL (1.8-2.4) 01/13/19 15:43 Total Bilirubin 1.1 mg/dL (0.2-1.0) H 01/13/19 15:43 AST 53 U/L (15-37) H 01/13/19 15:43 ALT 60 U/L (12-78) 01/13/19 15:43 Alkaline Phosphatase 120 U/L (45-117) H 01/13/19 15:43 Troponin I < 0.02 ng/mL (0.0-0.045) 01/14/19 07:28 Triglycerides Cancelled 01/13/19 Unknown Cholesterol Cancelled 01/13/19 Unknown HDL Cholesterol Cancelled 01/13/19 Unknown Cholesterol/HDL Ratio Cancelled 01/13/19 Unknown Home Medications: Aspirin [Aspirin EC 81 MG] 81 mg PO DAILY #30 tablet.dr 04/06/17 Atorvastatin Calcium [Lipitor*] 20 mg PO DAILY #30 tab 04/06/17 Lisinopril [Prinivil*] 5 mg PO DAILY #30 tab 04/06/17 Clopidogrel Bisulfate [Plavix*] 75 mg PO DAILY 01/14/19 Patient Discharge Instructions: Patient to follow-up with Cardiology. Please fax an 1 month supply of with 2 refills for all his medications to his pharmacy Diet: Regular Activity: Ad jl
--- NOTE | 2019-01-15 13:08 | CON ---
Date of Consultation: 01/15/2019 Reason For Admission: Atypical chest pain. History Of Present Illness: Mr. Salmon is a 38-year-old [place] male, presumably in November 017, he was life flighted to [facility] for acute HI, status post cocaine abuse at that time, p resumably had a stent and some cardioversions. The details were unknown. He returned to the [facility] here in March of 2017, when he had a normal echocardiogram and normal stress test. We have not seen him since then. He comes in with atypical chest pain, sharp, stabbing, normal EKG, normal chest x-ray, normal troponin, pain-free, ambulating in the hallway and talking on the phone without any sy mptoms, and wanting to go home. Past Medical History: Hypertension, drug use, and history of CAD as stated earlier. Allergies: HE DOES NOT HAVE ANY ALLERGIES. Medications: At home are supposed to be aspirin, Lipitor, Plavix, and lisinopril. Compliance is ramone btful. His examination was within normal limit. Diagnostic Data: Normal. I believe he can go home whenever it is okay with Dr. Alvares, and he should follow up with us, and hav e an outpatient stress test. MEHREEN/ZURIL Voice ID: [id number] Report ID: [id number]
== END 2019-01-14 11:18 | disposition home or self-care (01) ==
LOC: ER 14:44 → ERHOLD 17:23 → 2ND 18:16
PROVIDERS: ADMIT Family Medicine; ATTEND Family Medicine
DX: R07.9 Chest pain, unspecified (principal); I25.118 Atherosclerotic heart disease of native coronary artery with other forms of angina pectoris; I11.9 Hypertensive heart disease without heart failure; I25.2 Old myocardial infarction; E78.2 Mixed hyperlipidemia; Z86.19 Personal history of other infectious and parasitic diseases; Z95.5 Presence of coronary angioplasty implant and graft
CPT/HCPCS: 36415; 71045; 80048; 80061; 80076; 81003; 82550; 83735; 83880; 84484; 85025; 85610; 93005; 96360; 99285; G0378; J7030

== ENCOUNTER 2019-08-11 21:09 | Emergency (ER) | payer SELFPAY ==
--- OUTSIDE RECORDS SUMMARY | 2019-08-11 21:11 | XMS REPORT ---
:1980 [facility] [place] [address] [place] [id number] Care Team Providers Name Role Phone Unavailable Unavailable Unavailable Problems This patient has no known problems. Allergies, Adverse Reactions, Alerts This patient has no known allergies or adverse reactions. Medications This patient has no known medications.
[2019-08-11 21:43] LABS: Absolute Lymphocytes (CBC) 3.4 K/uL (0.7-4.9); Hematocrit 42.2 % (39.6-49.0); Lymphocytes % 39.8 % (15.3-44.8); MPV 9.3 fL (7.6-11.3); RBC Red Blood Cell Count 4.42 M/uL (4.33-5.43)
[2019-08-11 21:45] LABS: Protime INR 1.02
[2019-08-11 22:04] LABS: ALT/SGPT 80 U/L (12-78); Albumin 3.6 g/dL (3.4-5.0); Alkaline Phosphatase 108 U/L (45-117); BUN Blood Urea Nitrogen 15 mg/dL (7-18); Bicarbonate 30 mmol/L (21-32); Bilirubin Direct 0.2 mg/dL (0-0.2); Bilirubin Total 0.7 mg/dL (0.2-1.0); Glucose Level 88 mg/dL (74-106); NT PRO-BNP 261 pg/mL (<125); Sodium Level 142 mmol/L (136-145); Troponin (Emerg Dept Use Only) < 0.02 ng/mL (0.0-0.045)
[2019-08-11 22:07] LABS: AST/SGOT 42 U/L (15-37); Magnesium 2.4 mg/dL (1.8-2.4); Potassium 4.1 mmol/L (3.5-5.1)
[2019-08-11] MEDS ORDERED: NA CHLORIDE 0.9% 100 ML ONE (23:17)
[2019-08-11] MEDS ORDERED: LEVETIRACETAM 500 MG/5 ML VIAL IV ONE (23:24)
--- NOTE | 2019-08-12 01:09 | ER ---
Nurse's Notes [facility] Name: Zana Salmon Age: 39 yrs Sex: Male : 1980 Arrival Date: 08/11/2019 Time: 21:11 Bed 7 Private MD: Diagnosis: Epilepsy and recurrent seizures Presentation: 08/10 21:11 Chief complaint: EMS states: Toned out by family due to seizure activity, pt was seen ea by EMS earlier but did not stay in ambulance for treatment they were toned out a second time for a second seizure, EMS reported no seizure activity in the back of truck was alert and oriented x 3. Coronavirus screen: The patient has NOT traveled to a country currently being monitored by the CDC within the last 14 days. Ebola Screen: No symptoms or risks identified at this time. Initial Sepsis Screen: Does the patient meet any 2 criteria? No. Patient's initial sepsis screen is negative. Does the patient have a suspected source of infection? No. Patient's initial sepsis screen is negative. Risk Assessment: Do you want to hurt yourself or someone else? Patient reports no desire to harm self or others. 21:11 Method Of Arrival: EMS: [facility] ea 21:11 Acuity: DELANO 3 ea 23:20 Onset of symptoms is unknown. rv Triage Assessment: 21:17 General: Appears in no apparent distress. Behavior is appropriate for age. Pain: Denies ea pain. Neuro: Level of Consciousness is awake, alert, obeys commands, Oriented to person, place, time, situation. Cardiovascular: Patient's skin is warm and dry. Respiratory: Airway is patent Respiratory effort is even, unlabored, Respiratory pattern is regular, symmetrical. Derm: Skin is pink, warm \T\ dry. Historical: - Allergies: 21:19 No Known Allergies; ea - PMHx: 21:19 Myocardial infarction; Hypertension; Hepatitis; Seizures; ea - PSHx: 21:19 Heart stents; ea - Immunization history:: Adult Immunizations up to date. - Social history:: Smoking status: Patient denies any tobacco usage or history of. Screenin:16 Abuse screen: Denies threats or abuse. Nutritional screening: No deficits noted. ea Tuberculosis screening: No symptoms or risk factors identified. Fall Risk IV access (20 points). Assessment: 21:30 General: Appears in no apparent distress. Behavior is calm, cooperative. rv 21:30 Pain: Denies pain. Neuro: Level of Consciousness is awake, alert, obeys commands, rv Oriented to person, place, time, situation. Cardiovascular: Patient's skin is warm and dry. Respiratory: Airway is patent. Derm: Skin is intact. 23:30 Reassessment: Patient appears in no apparent distress at this time. Patient and/or rv family updated on plan of care and expected duration. Pain level reassessed. Patient is alert, oriented x 3, equal unlabored respirations, skin warm/dry/pink. no seizure episode. patient taken to CT scan. 08/11 01:03 Reassessment: Patient appears in no apparent distress at this time. Patient and/or rv family updated on plan of care and expected duration. Pain level reassessed. Patient is alert, oriented x 3, equal unlabored respirations, skin warm/dry/pink. patient updated on the test results and plan of care. awaiting Dr Blevins to come and talk to the patient before discharge. 01:15 Reassessment: DR BLEVINS TALKED TO THE PATIENT. CLEARED FOR DISCHARGE. CALLED THE FAMILY ea FOR TRANSPORTATION. 01:32 Reassessment: Patient and/or family updated on plan of care and expected duration. Pain ea level reassessed. Patient is alert, oriented x 3, equal unlabored respirations, skin warm/dry/pink. Pt left ED accompanied by family. Pt tolerating well. Vital Signs: 08/10 21:11 BP 111 / 57; Pulse 65; Resp 18; Temp 98; Pulse Ox 100% ; Weight 84.37 kg; Height 5 ft. ea 8 in. (172.72 cm); Pain 0/10; 22:00 BP 93 / 58; Pulse 57; Resp 16; Pulse Ox 97% on R/A; rv 22:30 BP 104 / 73; Pulse 67; Resp 16; Pulse Ox 99% on R/A; rv 23:00 BP 104 / 62; Pulse 62; Resp 17; Pulse Ox 99% on R/A; rv 08/11 01:11 BP 112 / 66; Pulse 63; Resp 16; Temp 98; Pulse Ox 100% on R/A; ea 08/10 21:11 Body Mass Index 28.28 (84.37 kg, 172.72 cm) ea [place] Coma Score: 08/10 21:17 Eye Response: spontaneous(4). Verbal Response: oriented(5). Motor Response: obeys ea commands(6). Total: 15. ED Course: 21:11 Patient arrived in ED. ea 21:16 Triage completed. ea 21:16 Arm band placed on right wrist. Patient placed in an exam room, on a stretcher, on ea pulse oximetry. EKG completed in triage. Results shown to MD. 21:17 Patient has correct armband on for positive identification. Bed in low position. Call ea light in reach. Side rails up X2. 21:17 Seizure precautions initiated. ea 21:19 Yissel Bocanegra, RN is Primary Nurse. ea 21:30 Maintain EMS IV. Dressing intact. Good blood return noted. Site clean \T\ dry. Gauge \T\ rv site: 18 g left ac. 21:30 No provider procedures requiring assistance completed. rv 21:52 Malik Blevins MD is Attending Physician. tw4 23:31 Primary Nurse role handed off by Yissel Bocanegra RN rv 23:31 Jerry Krause RN is Primary Nurse. rv 23:48 CT Head Brain wo Cont In Process Unspecified. EDMS 08/11 01:18 IV discontinued, intact, bleeding controlled, No redness/swelling at site. Pressure ea dressing applied. Administered Medications: 08/10 23:45 Drug: Keppra 1000 mg Route: IV; Rate: bolus; Site: left antecubital; ea 08/11 01:09 Follow up: Response: No adverse reaction; IV Status: Completed infusion ea 01:09 Follow up: Response: No adverse reaction ea 08/10 23:45 Drug: NS 0.9% 100 ml Route: IV; Rate: per protocol; Site: left antecubital; ea 08/11 00:00 Follow up: Response: No adverse reaction; IV Status: Completed infusion ea Outcome: 01:08 Discharge ordered by . tw4 01:32 Discharged to home via wheelchair, with family. ea 01:32 Condition: stable 01:32 Discharge instructions given to patient, Instructed on discharge instructions, follow up and referral plans. Demonstrated understanding of instructions, follow-up care, medications, Prescriptions given X 1. 01:34 Patient left the ED. ea Signatures: Dispatcher [employer] EDHI Yissel Bocanegra, RN RN Malik Santana MD MD tw4 Jerry Krause RN RN rv
--- NOTE | 2019-08-12 01:10 | EDPHYS ---
Physician Documentation [facility] Name: Zana Salmon Age: 39 yrs Sex: Male : 1980 Arrival Date: 08/11/2019 Time: 21:11 Bed 7 Private MD: ED Physician Malik Clancy HPI: 08/11 07:15 This 39 yrs old Male presents to ER via EMS with complaints of Seizure. tw4 07:15 The patient presents with a history of multiple seizures, a total of 2. Character of tw4 seizure(s): Motor activity: generalized. Seizure onset: just prior to arrival. Context: the seizure(s) was witnessed, by no one. Seizure Hx: it is unknown whether or not the patient has a previous seizure history. Associated injury: The patient did not suffer any apparent associated injury. The patient has experienced similar episodes in the past, several times. Historical: - Allergies: 08/10 21:19 No Known Allergies; ea - PMHx: 21:19 Myocardial infarction; Hypertension; Hepatitis; Seizures; ea - PSHx: 21:19 Heart stents; ea - Immunization history:: Adult Immunizations up to date. - Social history:: Smoking status: Patient denies any tobacco usage or history of. ROS: 08/11 07:15 Constitutional: Negative for fever, chills, and weight loss, Eyes: Negative for injury, tw4 pain, redness, and discharge, Cardiovascular: Negative for chest pain, palpitations, and edema, Respiratory: Negative for shortness of breath, cough, wheezing, and pleuritic chest pain, Abdomen/GI: Negative for abdominal pain, nausea, vomiting, diarrhea, and constipation, Back: Negative for injury and pain, MS/Extremity: Negative for injury and deformity, Skin: Negative for injury, rash, and discoloration. Neuro: Positive for altered mental status, seizure activity, Negative for dizziness, gait disturbance, headache, hearing loss, loss of consciousness. All other systems are negative. Exam: 07:15 Constitutional: This is a well developed, well nourished patient who is awake, alert, tw4 and in no acute distress. Head/Face: Normocephalic, atraumatic. Chest/axilla: Normal chest wall appearance and motion. Nontender with no deformity. No lesions are appreciated. Cardiovascular: Regular rate and rhythm with a normal S1 and S2. No gallops, murmurs, or rubs. Normal PMI, no JVD. No pulse deficits. Respiratory: Lungs have equal breath sounds bilaterally, clear to auscultation and percussion. No rales, rhonchi or wheezes noted. No increased work of breathing, no retractions or nasal flaring. Abdomen/GI: Soft, non-tender, with normal bowel sounds. No distension or tympany. No guarding or rebound. No evidence of tenderness throughout. Back: No spinal tenderness. No costovertebral tenderness. Full range of motion. Skin: Warm, dry with normal turgor. Normal color with no rashes, no lesions, and no evidence of cellulitis. MS/ Extremity: Pulses equal, no cyanosis. Neurovascular intact. Full, normal range of motion. Vital Signs: 08/10 21:11 BP 111 / 57; Pulse 65; Resp 18; Temp 98; Pulse Ox 100% ; Weight 84.37 kg; Height 5 ft. ea 8 in. (172.72 cm); Pain 0/10; 22:00 BP 93 / 58; Pulse 57; Resp 16; Pulse Ox 97% on R/A; rv 22:30 BP 104 / 73; Pulse 67; Resp 16; Pulse Ox 99% on R/A; rv 23:00 BP 104 / 62; Pulse 62; Resp 17; Pulse Ox 99% on R/A; rv 08/11 01:11 BP 112 / 66; Pulse 63; Resp 16; Temp 98; Pulse Ox 100% on R/A; ea 08/10 21:11 Body Mass Index 28.28 (84.37 kg, 172.72 cm) ea Karolina Coma Score: 08/10 21:17 Eye Response: spontaneous(4). Verbal Response: oriented(5). Motor Response: obeys ea commands(6). Total: 15. MDM: 21:52 Patient medically screened. tw4 08/11 07:16 Differential diagnosis: cerebral vascular accident, drug overdose. Data reviewed: vital tw4 signs, nurses notes. Data reviewed: lab test result(s), CBC, electrolytes, hepatic panel, EKG, radiologic studies, CT scan. Data interpreted: Pulse oximetry: Interpretation: normal. Counseling: I had a detailed discussion with the patient and/or guardian regarding: the historical points, exam findings, and any diagnostic results supporting the discharge/admit diagnosis, lab results, radiology results. Special discussion: I discussed with the patient/guardian in detail that at this point there is no indication for admission to the hospital. It is understood, however, that if the symptoms persist or worsen the patient needs to return immediately for re-evaluation. 08/10 21:27 Order name: Basic Metabolic Panel; Complete Time: 22:12 08/10 22:15 Interpretation: Normal except: CL 108; GFR 87. 08/10 21:27 Order name: CBC with Diff; Complete Time: :08/10 22:24 Interpretation: Within normal limits. 08/10 21:27 Order name: LFT's; Complete Time: :08/10 22:17 Interpretation: Normal except: AST 42; ALT 80; GLOB 4.4; A/G 0.8. 08/10 21:27 Order name: Magnesium; Complete Time: 22:12 08/10 22:24 Interpretation: Within normal limits: MG 2.4. 08/10 21:27 Order name: NT PRO-BNP; Complete Time: 22:12 08/10 22:24 Interpretation: Normal except: NT PRO-BNP 261. 08/10 21:27 Order name: PT-INR; Complete Time: :12 08/10 22:24 Interpretation: Within normal limits: PT 12.0. 08/10 21:27 Order name: Troponin (emerg Dept Use Only); Complete Time: 22:12 08/10 22:24 Interpretation: Within normal limits: TROPED < 0.02. 08/10 21:27 Order name: EKG; Complete Time: :08/10 21:27 Order name: Cardiac monitoring; Complete Time: : ea 08/10 21:27 Order name: EKG - Nurse/Tech; Complete Time: :08/10 21:27 Order name: Glucose, Ancillary Testing; Complete Time: 22:12 EDMS 08/10 22:24 Interpretation: Within normal limits: GLUC,ANCIL 90. 08/10 22:57 Order name: CT Head Brain wo Cont [facility] 08/10 21:27 Order name: IV Saline Lock; Complete Time: :27 08/10 21:27 Order name: Labs collected and sent; Complete Time: 22:14 08/10 21:27 Order name: O2 Per Protocol; Complete Time: :14 08/10 21:27 Order name: O2 Sat Monitoring; Complete Time: 21:51 EC:26 Rate is 60 beats/min. Rhythm is regular. QRS [place] is Normal. AL interval is normal. QRS tw4 interval is normal. QT interval is normal. No Q waves. T waves are Normal. No ST changes noted. Clinical impression: Normal ECG. Interpreted by me. Reviewed by me. Administered Medications: 08/10 23:45 Drug: Keppra 1000 mg Route: IV; Rate: bolus; Site: left antecubital; ea 08/11 01:09 Follow up: Response: No adverse reaction; IV Status: Completed infusion yary 01:09 Follow up: Response: No adverse reaction 08/10 23:45 Drug: NS 0.9% 100 ml Route: IV; Rate: per protocol; Site: left antecubital; 08/11 00:00 Follow up: Response: No adverse reaction; IV Status: Completed infusion Disposition: 08/12/19 01:08 Discharged to Home. Impression: Epilepsy and recurrent seizures. - Condition is Stable. - Discharge Instructions: Seizure, Adult. - Prescriptions for Keppra 750 mg Oral Tablet - take 1 tablet by ORAL route every 12 hours; 20 tablet. - Medication Reconciliation Form, Thank You Letter, Antibiotic Education, Prescription Opioid Use form. - Follow up: Private Physician; When: Upon discharge from the Emergency Department; Reason: If symptoms return, Recheck today's complaints, Continuance of care. - Problem is new. - Symptoms have improved. Signatures: Dispatcher [employer] EDMS Farida Delgado RN RN lp1 Yissel Bocanegra RN RN Malik Santana MD MD tw4 Corrections: (The following items were deleted from the chart) 01:34 01:08 08/12/2019 01:08 Discharged to Home. Impression: Epilepsy and recurrent seizures. ea Condition is Stable. Forms are Medication Reconciliation Form, Thank You Letter, Antibiotic Education, Prescription Opioid Use. Follow up: Private Physician; When: Upon discharge from the Emergency Department; Reason: If symptoms return, Recheck today's complaints, Continuance of care. Problem is new. Symptoms have improved. tw4
[2019-08-12 01:39] VITALS: TEMP 98
[2019-08-12 01:50] VITALS: BP 112/66; O2SAT 100
--- NOTE | 2019-08-12 08:29 | EKG ---
Test Date: 2019-08-11 Test Time: 21:18:51 Electric Meter Setter: NIRMAL MEASUREMENT RESULTS: Intervals: Rate: 60 UT: 132 QRSD: 98 QT: 422 QTc: 422 [place]on: P: 45 UT: 132 QRS: 66 T: 18 INTERPRETIVE STATEMENTS: Normal sinus rhythm Normal ECG Compared to ECG 01/13/2019 15:20:43 Right-axis deviation no longer present Electronically Signed On 08-12-19 08:27:47 CDT by Sanket Cedeño
--- NOTE | 2019-08-14 10:27 | RAD REPORT ---
EXAM DESCRIPTION: CT - Head Brain Wo Cont - 08/12/2019 5:33 am CLINICAL HISTORY: 39 years Male SEIZURE COMPARISON: None TECHNIQUE: Images were obtained in axial, sagittal, and coronal planes. This exam was performed according to our departmental dose-optimization program which includes use of Automated Exposure Control, adjustment of the mA and/or kV according to patient size and/or use of i terative reconstruction technique. FINDINGS: Ventricular system appears normal. No abnormal areas of increased or decreased attenuation are seen involving the brain parenchyma. No e xtra-axial fluid collections noted. No evidence for skull fracture. Symmetric aeration mastoid air cells bilaterally. Lobular mucosal thi ckening left maxillary antrum. IMPRESSION: No acute intracranial abnormality. No evidence for hemorrhage, mass lesion, or large acu te infarction. Electronically signed by: Jessica Aguilar MD 08/12/2019 12:03 AM CDT Due to temporary technical issues with the PACS/Fluency reporting system, reports are being signed by the in house radiologist as a courtesy to ensure prompt reporting. The interpreting radiologist is f ully responsible for the content of the report.
== END 2019-08-12 01:34 | disposition home or self-care (01) ==
LOC: ER 21:09
DX: G40.909 Epilepsy, unspecified, not intractable, without status epilepticus (principal); I25.2 Old myocardial infarction
CPT/HCPCS: 36415; 70450; 80048; 80076; 82947; 83735; 83880; 84484; 85025; 85610; 93005; 96365; 96375; 99284; J1953

== ENCOUNTER 2023-02-15 10:46 | Emergency (ER) | payer SELFPAY ==
--- OUTSIDE RECORDS SUMMARY | 2023-02-15 10:56 | XMS REPORT | Continuity of Care Document ---
:1980 Author Organization [facility] t Address [address] [place] [id number] Care Team Providers Name Role Phone Unavailable Unavailable Unavailable Problems This patient has no known problems. Allergies, Adverse Reactions, Alerts This patient has no known allergies or adverse reactions. Medications This patient has no known medications. Procedures This patient has no known procedures. Results This patient has no known results.
[2023-02-15] MEDS ORDERED: NITROGLYCERIN 0.4 MG/TAB SL ONE (11:17)
[2023-02-15 11:24] LABS: Protime INR 1.01
[2023-02-15 11:34] LABS: Absolute Lymphocytes (CBC) 1.8 K/uL (0.7-4.9); Hematocrit 49.2 % (39.6-49.0); Lymphocytes % 23.5 % (15.3-44.8); MCV 90.9 fL (80-100); MPV 8.9 fL (7.6-11.3); Platelets 346 thou/uL (152-406); RBC Red Blood Cell Count 5.41 M/uL (4.33-5.43)
--- NOTE | 2023-02-15 11:42 | RAD REPORT ---
EXAM DESCRIPTION: Keiko Single View02/15/2023 11:37 am CLINICAL HISTORY: Chest pain COMPARISON: 2018 FINDINGS: The lungs appear clear of acute infiltrate. The heart is normal size IMPRESSION: No acute abnormalities displayed
[2023-02-15 11:59] LABS: Magnesium 2.6 mg/dL (1.6-2.4); Troponin High Sensitivity 8.5 pg/mL (<58.9)
[2023-02-15] MEDS ORDERED: FUROSEMIDE 20 MG TABLET ONE (12:36)
--- NOTE | 2023-02-15 13:44 | ER ---
Nurse's Notes [facility] Name: Zana Salmon Age: 42 yrs Sex: Male : 1980 Arrival Date: 02/15/2023 Time: 10:46 Bed 16 Private MD: Diagnosis: Chest pain, unspecified Presentation: 02/15 10:47 Chief complaint: EMS states: toned out to [facility] for sudden onset chest pain and eh3 weakness, pt states its a dull pressure in center of chest and "feels like I swallowed something at its stuck there." Hx of [place] in 2017, was taking cardiac meds but stopped because they made him feel unwell. Coronavirus screen: Vaccine status: Patient reports being unvaccinated. Ebola Screen: No symptoms or risks identified at this time. Initial Sepsis Screen: Does the patient meet any 2 criteria? No. Patient's initial sepsis screen is negative. Does the patient have a suspected source of infection? No. Patient's initial sepsis screen is negative. Risk Assessment: Do you want to hurt yourself or someone else? Patient reports no desire to harm self or others. Onset of symptoms was February 15, 2023. 10:47 Method Of Arrival: EMS: [facility] eh3 10:47 Acuity: DELANO 2 eh3 10:50 Care prior to arrival: Medication(s) given: ASA, 325 mg, x 1. eh3 Triage Assessment: 10:50 General: Appears in no apparent distress. uncomfortable, Behavior is calm, cooperative, eh3 appropriate for age. Pain: Complains of pain in chest. Neuro: Level of Consciousness is awake, alert, obeys commands, Oriented to person, place, time, situation. Neuro: Reports weakness. Cardiovascular: Reports chest pain. Respiratory: Airway is patent Respiratory effort is even, unlabored, Respiratory pattern is regular, symmetrical. GI: Abdomen is round non-distended. Derm: Skin is diaphoretic, Skin is pink, Skin temperature is warm. Musculoskeletal: Circulation, motion, and sensation intact. Historical: - Allergies: 10:50 No Known Allergies; eh3 - PMHx: 10:50 Hepatitis; Hypertension; Myocardial infarction; Seizures; eh3 - Immunization history:: Adult Immunizations not up to date. - Social history:: Smoking status: Patient denies any tobacco usage or history of. Patient uses alcohol, occasionally. - Family history:: not pertinent. Screenin:12 [facility] ED Fall Risk Assessment (Adult) History of falling in the last 3 months, kc6 including since admission No falls in past 3 months (0 pts) Confusion or Disorientation No (0 pts) Intoxicated or Sedated No (0 pts) Impaired Gait No (0 pts) Mobility Assist Device Used No (0 pt) Altered Elimination No (0 pt) Score/Fall Risk Level 0 - 2 = Low Risk. Abuse screen: Denies threats or abuse. Denies injuries from another. Nutritional screening: No deficits noted. Tuberculosis screening: No symptoms or risk factors identified. Assessment: 11:14 Reassessment: please see triage assessment. kc6 12:10 Reassessment: Patient appears in no apparent distress at this time. No changes from 6 previously documented assessment. Patient and/or family updated on plan of care and expected duration. Pain level reassessed. Patient is alert, oriented x 3, equal unlabored respirations, skin warm/dry/pink. 13:06 Reassessment: Patient appears in no apparent distress at this time. No changes from kc6 previously documented assessment. Patient and/or family updated on plan of care and expected duration. Pain level reassessed. Patient is alert, oriented x 3, equal unlabored respirations, skin warm/dry/pink. Vital Signs: 10:45 BP 130 / 90; Pulse 80; Resp 16; Temp 98.1; Pulse Ox 100% ; aw1 10:47 BP 130 / 90; Pulse 80; Resp 16; Temp 98.1(O); Pulse Ox 100% on R/A; Weight 77.11 kg; eh3 Height 5 ft. 8 in. ; Pain 8/10; 11:41 BP 100 / 73; Pulse 83; Resp 19 S; Pulse Ox 100% on R/A; kc6 12:10 BP 130 / 94; Pulse 89; Resp 19 S; Pulse Ox 100% on R/A; kc6 13:06 BP 129 / 68; Pulse 75; Resp 14 S; Pulse Ox 98% on R/A; kc6 14:08 BP 129 / 67; Pulse 75; Resp 15; Pulse Ox 100% ; jl7 10:47 Body Mass Index 25.85 (77.11 kg, 172.72 cm) eh3 10:47 Pain Scale: Adult 3 ED Course: 10:47 Patient arrived in ED. kc6 10:47 Zuleyma Peoples, RN is Primary Nurse. 3 10:48 Jesika Bailey MD is Attending Physician. 3 10:50 Triage completed. 3 10:50 Arm band placed on. 3 11:05 Inserted saline lock: 20 gauge in right antecubital area, using aseptic technique. eh3 Blood collected. Patient maintains SpO2 saturation greater than 95% on room air. 11:12 Patient has correct armband on for positive identification. Bed in low position. Call kc6 light in reach. Side rails up X2. Security at bedside. Client placed on continuous cardiac and pulse oximetry monitoring. NIBP monitoring applied. bus driver/monitor on. 11:13 Arely Grayson, MAGDALENA is Primary Nurse. kc6 11:39 XRAY Chest (1 view) In Process Unspecified. EDMS 13:11 Troponin High Sensitivity Sent. 8 13:12 Lab(s) recollected, by me, sent to lab. [facility] 13:43 Bogdan Mane MD is Referral Physician. cp3 14:08 No provider procedures requiring assistance completed. IV discontinued, intact, jl7 bleeding controlled, No redness/swelling at site. Pressure dressing applied. Administered Medications: 11:07 Drug: Nitroglycerin Sublingual 0.4 mg Sublingual once Route: Sublingual; 6 11:57 Follow up: Response: No adverse reaction; Pain is decreased kc6 12:35 Drug: Furosemide PO 20 mg PO once Route: PO; kc6 13:40 Follow up: Response: No adverse reaction [facility] Medication: 14:08 VIS not applicable for this client. jl7 Outcome: 13:43 Discharge ordered by . 3 14:08 Discharged to home ambulatory, jl7 14:08 Condition: stable 14:08 Discharge instructions given to patient, Instructed on discharge instructions, follow up and referral plans. medication usage, Demonstrated understanding of instructions, follow-up care, medications, Prescriptions given X 1, 14:09 Patient left the ED. jl7 Signatures: Dispatcher [employer] EDMS Jesika Bailey MD MD cp3 Juan Dempsey RN RN jl7 Zuleyma Peoples RN RN 3 Arely Grayson RN RN 6 Maria Del [place] 8 Yvette Mercedes aw1 Corrections: (The following items were deleted from the chart) 12:10 12:10 BP 133 / 094; Pulse 89bpm; Resp 19bpm; Spontaneous; Pulse Ox 100% RA; kc6 kc6
--- NOTE | 2023-02-15 13:44 | EDPHYS ---
Physician Documentation [facility] Name: Zana Salmon Age: 42 yrs Sex: Male : 1980 Arrival Date: 02/15/2023 Time: 10:46 Bed 16 Private MD: ED Physician Jesika Bailey HPI: 02/15 11:31 This 42 yrs old Male presents to ER via EMS with complaints of Chest Pain. cp3 11:31 EMS care prior to arrival includes: aspirin. Patient is a 42-year-old male with a cp3 history of hepatitis, hypertension, IL in 2017, seizure disorder who reports 45 minutes of left-sided chest discomfort that is nonradiating and rated at 3 out of 10. The Pain is described as an aching discomfort. No associated nausea, vomiting, shortness of breath, diaphoresis. Patient has been under significant stress related to legal problems. Patient has been noncompliant with his medication since 2019. The patient denies smoking, alcohol, substance abuse . Historical: - Allergies: 10:50 No Known Allergies; eh3 - PMHx: 10:50 Hepatitis; Hypertension; Myocardial infarction; Seizures; eh3 - Immunization history:: Adult Immunizations not up to date. - Social history:: Smoking status: Patient denies any tobacco usage or history of. Patient uses alcohol, occasionally. - Family history:: not pertinent. ROS: 11:31 Constitutional: Negative for fever, chills, and weight loss, Eyes: Negative for injury, cp3 pain, redness, and discharge, ENT: Negative for injury, pain, and discharge, Neck: Negative for injury, pain, and swelling, Respiratory: Negative for shortness of breath, cough, wheezing, and pleuritic chest pain, Abdomen/GI: Negative for abdominal pain, nausea, vomiting, diarrhea, and constipation, Back: Negative for injury and pain, MS/Extremity: Negative for injury and deformity, Skin: Negative for injury, rash, and discoloration, Neuro: Negative for headache, weakness, numbness, tingling, and seizure, Psych: Negative for depression, anxiety, suicide ideation, homicidal ideation, and hallucinations, Allergy/Immunology: Negative for hives, rash, and allergies, Endocrine: Negative for neck swelling, polydipsia, polyuria, polyphagia, and marked weight changes, Hematologic/Lymphatic: Negative for swollen nodes, abnormal bleeding, and unusual bruising, 11:31 Cardiovascular: Positive for chest pain, Exam: 11:31 Constitutional: This is a well developed, well nourished patient who is awake, alert, cp3 and in no acute distress. Head/Face: Normocephalic, atraumatic. Eyes: Pupils equal round and reactive to light, extra-ocular motions intact. Lids and lashes normal. Conjunctiva and sclera are non-icteric and not injected. Cornea within normal limits. Periorbital areas with no swelling, redness, or edema. ENT: Nares patent. No nasal discharge, no septal abnormalities noted. Tympanic membranes are normal and external auditory canals are clear. Oropharynx with no redness, swelling, or masses, exudates, or evidence of obstruction, uvula midline. Mucous membranes moist. Neck: Trachea midline, no thyromegaly or masses palpated, and no cervical lymphadenopathy. Supple, full range of motion without nuchal rigidity, or vertebral point tenderness. No Meningismus. Chest/axilla: Normal chest wall appearance and motion. Nontender with no deformity. No lesions are appreciated. Cardiovascular: Regular rate and rhythm with a normal S1 and S2. No gallops, murmurs, or rubs. Normal PMI, no JVD. No pulse deficits. Respiratory: Lungs have equal breath sounds bilaterally, clear to auscultation and percussion. No rales, rhonchi or wheezes noted. No increased work of breathing, no retractions or nasal flaring. Abdomen/GI: Soft, non-tender, with normal bowel sounds. No distension or tympany. No guarding or rebound. No evidence of tenderness throughout. Back: No spinal tenderness. No costovertebral tenderness. Full range of motion. Male : Normal genitalia with no discharge or lesions. MS/ Extremity: Pulses equal, no cyanosis. Neurovascular intact. Full, normal range of motion. Neuro: Awake and alert, GCS 15, oriented to person, place, time, and situation. Cranial nerves II-XII grossly intact. Motor strength 5/5 in all extremities. Sensory grossly intact. Cerebellar exam normal. Normal gait. Psych: Awake, alert, with orientation to person, place and time. Behavior, mood, and affect are within normal limits. Vital Signs: 10:45 BP 130 / 90; Pulse 80; Resp 16; Temp 98.1; Pulse Ox 100% ; aw1 10:47 BP 130 / 90; Pulse 80; Resp 16; Temp 98.1(O); Pulse Ox 100% on R/A; Weight 77.11 kg; eh3 Height 5 ft. 8 in. ; Pain 8/10; 11:41 BP 100 / 73; Pulse 83; Resp 19 S; Pulse Ox 100% on R/A; kc6 12:10 BP 130 / 94; Pulse 89; Resp 19 S; Pulse Ox 100% on R/A; kc6 13:06 BP 129 / 68; Pulse 75; Resp 14 S; Pulse Ox 98% on R/A; kc6 14:08 BP 129 / 67; Pulse 75; Resp 15; Pulse Ox 100% ; jl7 10:47 Body Mass Index 25.85 (77.11 kg, 172.72 cm) eh3 10:47 Pain Scale: Adult eh3 Procedures: 11:31 EKG interpreted by me at 11:01 AM. Patient with a rate of 83, normal sinus rhythm, QT cp3 of 370 no evidence of acute IL. 11:32 Performed career technical counselor rhythm strip interpreted by me. Rate 55, normal sinus rhythm. cp3 MDM: 10:48 Patient medically screened. 3 11:32 Differential diagnosis: acute myocardial infarction, coronary artery disease pleurisy, cp3 pulmonary embolus, unstable angina. HEART Score: History: Moderately Suspicious (1), ECG: Normal (0), Age: > 45 and < 65 years (1), Risk Factors: > or = 3 Risk factors for atherosclerotic disease (2), Troponin: < or = 1 x Normal Limit (0), Total Score = 4. 13:41 Data reviewed: vital signs, nurses notes, EMS record. Consideration of [facility] Admission/Observation Escalation of care including admission/observation considered. patient declined observation. 13:48 I considered the following discharge prescriptions or medication management in the [facility] emergency department Medications were administered in the Emergency Department. See MAR aspirin given mine captain, . 02/15 10:52 Order name: Basic Metabolic Panel; Complete Time: 12:11 cp3 02/15 13:41 Interpretation: Within normal limits: NA 138; K 4.0; CL 104; CO2 30; ANION GAP 8.0; cp3 GLUC 107; BUN 9; CRE 1.03; GFR 92; CA 8.7. 02/15 10:52 Order name: CBC with Diff; Complete Time: 11:34 3 02/15 10:52 Order name: D-Dimer; Complete Time: 11:34 cp3 02/15 11:35 Interpretation: D-DIMER 334. cp3 02/15 10:52 Order name: Magnesium; Complete Time: 12:11 cp3 02/15 12:11 Interpretation: MG 2.6. cp3 02/15 10:52 Order name: NT PRO-BNP; Complete Time: 12:11 cp3 02/15 12:11 Interpretation: NT PRO-BNP 231. cp3 02/15 10:52 Order name: PT-INR; Complete Time: 11:34 3 02/15 11:35 Interpretation: INR <p>1.01</p>. 3 02/15 10:52 Order name: Troponin HS; Complete Time: 12:11 cp3 02/15 12:11 Interpretation: Troponin HS 8.5. 3 02/15 12:12 Order name: Troponin High Sensitivity; Complete Time: 13:39 3 02/15 13:41 Interpretation: Troponin HS 8.2. 3 02/15 10:52 Order name: XRAY Chest (1 view); Complete Time: 12:11 3 02/15 10:52 Order name: EKG; Complete Time: 10:53 3 02/15 10:52 Order name: Cardiac monitoring; Complete Time: 10:53 3 02/15 10:52 Order name: EKG - Nurse/Tech; Complete Time: 10:53 3 02/15 10:52 Order name: IV Saline Lock; Complete Time: 11:05 3 02/15 10:52 Order name: Labs collected and sent; Complete Time: 11:05 3 02/15 10:52 Order name: O2 Per Protocol; Complete Time: 10:53 3 02/15 10:52 Order name: O2 Sat Monitoring; Complete Time: 10:53 cp3 Administered Medications: 11:07 Drug: Nitroglycerin Sublingual 0.4 mg Sublingual once Route: Sublingual; kc6 11:57 Follow up: Response: No adverse reaction; Pain is decreased kc6 12:35 Drug: Furosemide PO 20 mg PO once Route: PO; kc6 13:40 Follow up: Response: No adverse reaction kc6 Disposition Summary: 02/15/23 13:43 Discharge Ordered Notes: Location: Home cp3 Condition: Stable cp3 Problem: new cp3 Symptoms: are resolved cp3 Diagnosis - Chest pain, unspecified cp3 Followup: cp3 - With: Bogdan Mane MD - When: - Reason: Further diagnostic work-up Discharge Instructions: - Discharge Summary Sheet cp3 - Nonspecific Chest Pain, Adult, [id number] cp3 Forms: - Medication Reconciliation Form cp3 - Thank You Letter cp3 - Antibiotic Education cp3 - Prescription Opioid Use cp3 - Patient Portal Instructions cp3 - Leadership Thank You Letter cp3 Prescriptions: - aspirin 325 mg Oral tablet - take 1 tablet by ORAL route once; 30 tablet; Refills: 0, Product Selection cp3 Permitted Signatures: Dispatcher [employer] Jesika aPz MD MD cp3 Zuleyma Peoples RN RN eh3 Arely Grayson RN RN kc6 Corrections: (The following items were deleted from the chart) 11:35 11:34 WBC 7.60; RBC 5.41; HGB 16.4; HCT 49.2; MCV 90.9; MCH 30.4; MCHC 33.4; PLT 346; cp3 RDW 13.6; MPV 8.9; PABLO% 66.4; LYM% 23.5; MN% 9.1; EOSINOPHIL % 0.4; BASO% 0.6; NEUT A 5.1; LYMA 1.8; MNA 0.7; EOSA 0.0; BASOA 0.0. cp3 13:41 12:11 NA 138; K 4.0; CL 104; CO2 30; ANION GAP 8.0; GLUC 107; BUN 9; CRE 1.03; GFR 92; cp3 CA 8.7. cp3
[2023-02-15 14:30] VITALS: TEMP 98.1
[2023-02-15 14:35] VITALS: BP 129/67; O2SAT 100
== END 2023-02-15 14:09 | disposition home or self-care (01) ==
LOC: ER 10:46
DX: R07.89 Other chest pain (principal); I10 Essential (primary) hypertension; I25.2 Old myocardial infarction
CPT/HCPCS: 36415; 71045; 80048; 83735; 83880; 84484; 85025; 85379; 85610; 93005

== ENCOUNTER 2023-05-08 01:30 | Emergency (ER) | payer SELFPAY ==
--- OUTSIDE RECORDS SUMMARY | 2023-05-08 01:33 | XMS REPORT | Continuity of Care Document ---
Author Name Unknown Address [address] [place] [address] [employer] Address [address] [place] [address] [address] [place] [address] Care Team Providers [employer] Fabricator Name Role Phone Unavailable Unavailable Unavailable
[2023-05-08] MEDS ORDERED: LORazepam 2 MG/ML VIAL ONE ×2 (02:09→04:10)
[2023-05-08] MEDS ORDERED: NA CHLORIDE 0.9% 1,000 ML ONE ×3 (02:09→04:00)
[2023-05-08 02:18] LABS: Specific Gravity > 1.030 (1.005-1.030); Urine Bacteria <20 /HPF (<20); Urine Bilirubin 1+ (Negative); Urine Blood Negative (Negative); Urine Clarity Extremely Turbid (Clear); Urine Color Yellow (Yellow); Urine Crystals Unidentified Few /HPF (None Seen); Urine Glucose NEGATIVE (Negative); Urine Mucus 4+ /HPF (None Seen); Urine Protein 2+ (Negative); Urine Urobilinogen 2+ (Normal)
[2023-05-08 02:23] LABS: Absolute Lymphocytes (CBC) 1.3 K/uL (0.7-4.9); Hematocrit 52.3 % (39.6-49.0); Lymphocytes % 13.5 % (15.3-44.8); MCV 90.5 fL (80-100); MPV 8.7 fL (7.6-11.3); Platelets 313 thou/uL (152-406); RBC Red Blood Cell Count 5.78 M/uL (4.33-5.43)
[2023-05-08 02:25] LABS: Barbiturates NEGATIVE (NEGATIVE); Benzodiazepines NEGATIVE (NEGATIVE); Cocaine POSITIVE (NEGATIVE); METHAMPHETAM POSITIVE (NEGATIVE); Methadone NEGATIVE (NEGATIVE); Opiates NEGATIVE (NEGATIVE); Phencyclidine NEGATIVE (NEGATIVE); THC Cannibis POSITIVE (NEGATIVE)
[2023-05-08 02:27] LABS: Protime INR 1.04
[2023-05-08 02:44] LABS: ALT/SGPT 210 U/L (16-61); AST/SGOT 159 U/L (15-37); Albumin 4.5 g/dL (3.4-5.0); Alkaline Phosphatase 168 U/L (45-117); BUN Blood Urea Nitrogen 26 mg/dL (7-18); Bicarbonate 26 mEq/L (21-32); Bilirubin Direct 0.7 mg/dL (0-0.2); Bilirubin Indirect, Calculated 1.7 mg/dL (0.2-0.8); Bilirubin Total 2.4 mg/dL (0.2-1.0); Glomerular Filtration Rate 49 ml/min (=/>90); Potassium 3.5 mEq/L (3.5-5.1); Protein, Total 9.8 g/dL (6.4-8.2); Sodium Level 136 mEq/L (136-145)
[2023-05-08 02:52] LABS: Glucose Level 56 mg/dL (74-106)
[2023-05-08] MEDS ORDERED: D10W 250 ML IV ONE (03:24)
[2023-05-08 04:37] LABS: Blood Morphology Comment NOT SEEN (NOT SEEN); Platelet Estimate ADEQ; White Blood Cell Scan OK (OK)
--- NOTE | 2023-05-08 06:44 | ER ---
Nurse's Notes [facility] Name: Zana Salmon Age: 43 yrs Sex: Male : 1980 Arrival Date: 05/08/2023 Time: 01:30 Bed 13 Private MD: Diagnosis: Pain in right leg;Altered mental status, unspecified;Abuse of other non-psychoactive substances;Hypoglycemia, unspecified;Abnormal finding of blood chemistry, unspecified-elevated liver enzymes,transaminases;Unspecified kidney failure;Cocaine abuse;Adverse effect of amphetamines Presentation: 05/08 01:30 Chief complaint: EMS states: toned out due to pt jumping from a 2nd story window; pt km8 denies SI; pt was hallucinating that the "management department chair where chasing him" so he had to jump out of the window to get away; pt took and unknown drug from a friend prior to event; pt complains of right thigh pain. Coronavirus screen: Client denies travel out of the [place] in the last 14 days. Ebola Screen: No symptoms or risks identified at this time. Initial Sepsis Screen: Does the patient meet any 2 criteria? HR > 90 bpm. Yes Does the patient have a suspected source of infection? No. Patient's initial sepsis screen is negative. Risk Assessment: Do you want to hurt yourself or someone else? Patient reports no desire to harm self or others. Onset of symptoms was May 08, 2023. 01:30 Method Of Arrival: EMS: [facility] km8 01:30 Acuity: DELANO 2 km8 01:30 Care prior to arrival: Medication(s) given: Normal saline infusion, 100 IV initiated. km8 20 GA, in the left antecubital area. Triage Assessment: 01:30 General: Appears in no apparent distress. uncomfortable, Behavior is cooperative, km8 anxious. Pain: Complains of pain in right quadriceps Pain currently is 9 out of 10 on a pain scale. EENT: No signs and/or symptoms were reported regarding the EENT system. Neuro: [place] Agitation-Sedation Scale (RASS): +1 Restless Level of Consciousness is awake, alert, obeys commands, Oriented to person, place, time. Cardiovascular: Denies chest pain, shortness of breath, Capillary refill < 3 seconds Patient's skin is warm and dry. Respiratory: Airway is patent Respiratory effort is even, unlabored, Respiratory pattern is regular, symmetrical. GI: No signs and/or symptoms were reported involving the gastrointestinal system. : No signs and/or symptoms were reported regarding the genitourinary system. Derm: No signs and/or symptoms reported regarding the dermatologic system. Skin is intact, is healthy with good turgor, Skin is dry, Skin is pink, warm \\T\\ dry. normal, Skin temperature is warm. Musculoskeletal: Circulation, motion, and sensation intact. Range of motion: intact in all extremities, Reports pain in right quadriceps. Historical: - Allergies: 02:00 No Known Allergies; km8 - Home Meds: 02:00 None [Active]; km8 - PMHx: 02:00 Hepatitis; Hypertension; Myocardial infarction; Seizures; km8 - Immunization history:: Adult Immunizations unknown, Client reports having NOT received the Covid vaccine. Flu vaccine is not up to date. - Social history:: Smoking status: Patient denies any tobacco usage or history of. Patient uses alcohol, but reports only rare drinking. street drugs, marijuana, "ICE". - Family history:: not pertinent. Screenin:30 [facility] ED Fall Risk Assessment (Adult) History of falling in the last 3 months, km8 including since admission Yes- single mechanical fall (1 pt) Confusion or Disorientation Yes (5 pts) Intoxicated or Sedated No (0 pts) Impaired Gait No (0 pts) Mobility Assist Device Used No (0 pt) Altered Elimination No (0 pt) Score/Fall Risk Level 3 or more points = High Risk Oriented to surroundings, Maintained a safe environment, Educated pt \\T\\ family on fall prevention, incl call for assistance when getting out of bed, Assessed \\T\\ reinforced patient's understanding of fall precautions, Provided non-skid footwear, Used ambulatory aids as needed (educated on \\T\\ assisted with), Implemented a Fall Risk Plan of Care, Remained w/in arm's length of patient and in sight while toileting, Remained with patient while ambulating. Abuse screen: Denies threats or abuse. Denies injuries from another. Nutritional screening: No deficits noted. Tuberculosis screening: No symptoms or risk factors identified. Assessment: 01:30 General: see triage notes/assessment. km8 02:40 Reassessment: Patient appears in no apparent distress at this time. Patient and/or km8 family updated on plan of care and expected duration. Pain level reassessed. Patient is alert, oriented x 3, equal unlabored respirations, skin warm/dry/pink. General: Behavior is calm, cooperative, quiet. Neuro: [place] Agitation-Sedation Scale (RASS): -1 Drowsy. 03:30 Reassessment: Patient appears in no apparent distress at this time. No changes from [facility] previously documented assessment. Patient and/or family updated on plan of care and expected duration. Pain level reassessed. Patient is alert, oriented x 3, equal unlabored respirations, skin warm/dry/pink. 04:08 General: pt not able to lay still for CT even after being medicated with Ativan; Dr. estela Tsang notified; ground water technician to bring pt back and will try CT later. 05:01 Reassessment: Patient appears in no apparent distress at this time. Patient and/or km8 family updated on plan of care and expected duration. Pain level reassessed. Patient is alert, oriented x 3, equal unlabored respirations, skin warm/dry/pink. 05:01 Neuro: [place] Agitation-Sedation Scale (RASS): 0 - Alert and Calm Level of km Consciousness is awake, alert, obeys commands. 06:00 Reassessment: Patient appears in no apparent distress at this time. No changes from [facility] previously documented assessment. Patient and/or family updated on plan of care and expected duration. Pain level reassessed. Patient is alert, oriented x 3, equal unlabored respirations, skin warm/dry/pink. 07:00 Reassessment: Patient appears in no apparent distress at this time. Patient and/or db family updated on plan of care and expected duration. Pain level reassessed. Patient is alert, oriented x 3, equal unlabored respirations, skin warm/dry/pink. 07:05 Reassessment: PT USING TELEPHONE TO CALL RIDE. PT PROVIDED PAPER SCRUBS AND SOCKS. db 07:20 Reassessment: Patient appears in no apparent distress at this time. Patient and/or db family updated on plan of care and expected duration. Pain level reassessed. Patient is alert, oriented x 3, equal unlabored respirations, skin warm/dry/pink. General: Appears in no apparent distress. comfortable, Behavior is calm, cooperative. Neuro: Level of Consciousness is awake, alert, obeys commands, Oriented to person, place, time, situation. Respiratory: Airway is patent Respiratory effort is even, unlabored, Respiratory pattern is regular, symmetrical. Vital Signs: 01:30 BP 102 / 77; Pulse 130; Resp 20; Temp 98.7(O); Pulse Ox 99% on R/A; Weight 83.91 kg km8 (R); Height 5 ft. 8 in. (R); Pain 9/10; 02:20 BP 104 / 67; Pulse 102; Resp 16; Pulse Ox 100% on R/A; km8 02:30 BP 104 / 78; Pulse 101; Resp 16; Pulse Ox 98% on R/A; km8 03:00 BP 97 / 65; Pulse 90; Resp 16; Pulse Ox 97% ; km8 05:00 BP 109 / 78; Pulse 105 RA; Resp 16; Pulse Ox 100% ; km8 05:45 BP 126 / 77; Pulse 100; Resp 16; Pulse Ox 100% on R/A; km8 06:00 BP 132 / 80; Pulse 88; Resp 16; Pulse Ox 99% on R/A; km8 06:30 BP 109 / 71; Pulse 102; Resp 16; Pulse Ox 99% on R/A; km8 01:30 Body Mass Index 28.13 (83.91 kg, 172.72 cm) km8 01:30 Pain Scale: Adult km8 Karolina Coma Score: 01:30 Eye Response: spontaneous(4). Motor Response: obeys commands(6). Verbal Response: km8 oriented(5). Total: 15. ED Course: 01:30 Arm band placed on right wrist. km8 01:30 Patient has correct armband on for positive identification. Bed in low position. Call km8 light in reach. Side rails up X 1. Pulse ox on. NIBP on. Door closed. Visitors limited. Lights dimmed. Warm blanket given. 01:30 Maintain EMS IV. Good blood return noted. Site clean \\T\\ dry. Gauge \\T\\ site: 20 g left AC. km 8 Patient maintains SpO2 saturation greater than 95% on room air. 01:32 Patient arrived in ED. angelina 01:32 Thee Tsang MD is Attending Physician. angelina 01:42 Dia Odell RN is Primary Nurse. km8 02:00 Triage completed. km8 03:36 AMMONIA Sent. km8 03:48 Femur Right XRAY In Process Unspecified. EDMS 03:48 No provider procedures requiring assistance completed. km8 05:01 Diet: Patient given snack. Patient given juice. Tolerated well. km8 05:57 CT Traumagram (Head C Spine CAP W Con) In Process Unspecified. EDMS 06:43 Jaylen Hearn MD is Referral Physician. angelina 07:20 Provided Education on: DISCHARGE. db 07:20 IV discontinued, intact, bleeding controlled, No redness/swelling at site. db Administered Medications: 02:03 Drug: NS 0.9% IV 1000 ml IV at 1 bolus Per protocol; 1000 mL bolus Route: IV; Rate: 1 ha1 bolus; Site: left antecubital; 02:03 Drug: Ativan IVP 2 mg IVP once Route: IVP; Site: left antecubital; ha1 03:03 Follow up: Response: No adverse reaction; Anxiety decreased km8 03:15 Drug: D10 in Water IVP 250 ml IVP once Route: IVP; Site: left antecubital; km8 03:36 Follow up: Response: No adverse reaction km8 03:58 Drug: Ativan IVP 1 mg IVP once {Note: given in CT.} Route: IVP; Site: left antecubital; km8 04:58 Follow up: Response: No adverse reaction km8 04:59 Drug: NS 0.9% IV 1000 ml IV at 1 bolus Per protocol; 1000 mL bolus Route: IV; Rate: 1 km8 bolus; Site: left antecubital; 07:20 Follow up: IV Status: Completed infusion db 04:59 Drug: NS 0.9% IV 1000 ml IV at 1 bolus Per protocol; 1000 mL bolus Route: IV; Rate: 1 km8 bolus; Site: left antecubital; 07:20 Follow up: IV Status: Completed infusion db Medication: 01:30 VIS not applicable for this client. km8 Outcome: 06:43 Discharge ordered by . angelina 07:20 Discharged to home ambulatory, with friend, db 07:20 Condition: stable 07:20 Discharge instructions given to patient, Instructed on discharge instructions, follow up and referral plans. 07:47 Patient left the ED. db Signatures: Dispatcher [employer] EDMS Thee Tsang MD MD cha Ayala, Heidy, RN RN ha1 Jacque Telles, RN RN db Dia Odell RN RN km8 Corrections: (The following items were deleted from the chart) 02: 02:00 General: Appears in no apparent distress. uncomfortable, Behavior is cooperative, km8 anxious, km8 02:06 02:00 Pain: Complains of pain in right quadriceps Pain currently is 9 out of 10 on a km8 pain scale. km8 : 02:00 EENT: No signs and/or symptoms were reported regarding the EENT system. km8 km8 : 02:00 Neuro: [place] Agitation-Sedation Scale (RASS): +1 Restless Level of km8 Consciousness is awake, alert, obeys commands, Oriented to person, place, time, km8 : 02:00 Cardiovascular: Denies chest pain, shortness of breath, Capillary refill < 3 km8 seconds Patient's skin is warm and dry. km8 : 02:00 Respiratory: Airway is patent Respiratory effort is even, unlabored, Respiratory km8 pattern is regular, symmetrical, km8 : 02:00 GI: No signs and/or symptoms were reported involving the gastrointestinal system. km8 km8 : 02:00 : No signs and/or symptoms were reported regarding the genitourinary system. km8km8 02: 02:00 Derm: No signs and/or symptoms reported regarding the dermatologic system. Skin km8 is intact, is healthy with good turgor, Skin is dry, Skin is pink, warm \\T\\ dry. normal, Skin temperature is warm km8 : 02:00 Musculoskeletal: Circulation, motion, and sensation intact. Range of motion: km8 intact in all extremities, Reports pain in right quadriceps km8 06:35 05:01 Reassessment: Patient appears in no apparent distress at this time. No changes km8 from previously documented assessment. Patient and/or family updated on plan of care and expected duration. Pain level reassessed. Patient is alert, oriented x 3, equal unlabored respirations, skin warm/dry/pink. km8
--- NOTE | 2023-05-08 06:44 | EDPHYS ---
Physician Documentation [facility] Name: Zana Salmon Age: 43 yrs Sex: Male : 1980 Arrival Date: 05/08/2023 Time: 01:30 Bed 13 Private MD: SOM Physician Thee Tsang HPI: 05/08 02:16 This 43 yrs old Male presents to ER via EMS with complaints of drugs, jumped angelina off [facility]. 02:16 The patient presents with pain, that is acute. The complaints affect the right angelina quadriceps. Context: The problem was sustained at home, resulted from the patient falling, while jumping, the patient can fully bear weight. Onset: The symptoms/episode began/occurred just prior to arrival. Modifying factors: The symptoms are alleviated by remaining still, the symptoms are aggravated by movement. Associated signs and symptoms: Pertinent positives: weakness. The patient presents with confusion. Possible causes: drug use, amphetamines. Associated signs and symptoms: Pertinent positives: agitation, confusion. Historical: - Allergies: 02:00 No Known Allergies; km8 - Home Meds: 02:00 None [Active]; km8 - PMHx: 02:00 Hepatitis; Hypertension; Myocardial infarction; Seizures; km8 - Immunization history:: Adult Immunizations unknown, Client reports having NOT received the Covid vaccine. Flu vaccine is not up to date. - Social history:: Smoking status: Patient denies any tobacco usage or history of. Patient uses alcohol, but reports only rare drinking. street drugs, marijuana, "ICE". - Family history:: not pertinent. ROS: 02:16 Constitutional: Negative for fever, chills, and weight loss, Eyes: Negative for injury, angelina pain, redness, and discharge, ENT: Negative for injury, pain, and discharge, Neck: Negative for injury, pain, and swelling, Cardiovascular: Negative for chest pain, palpitations, and edema, Respiratory: Negative for shortness of breath, cough, wheezing, and pleuritic chest pain, Abdomen/GI: Negative for abdominal pain, nausea, vomiting, diarrhea, and constipation, Back: Negative for injury and pain, : Negative for injury, bleeding, discharge, and swelling, MS/Extremity: Negative for injury and deformity, Skin: Negative for injury, rash, and discoloration, Neuro: Negative for headache, weakness, numbness, tingling, and seizure, Psych: Negative for depression, anxiety, suicide ideation, homicidal ideation, and hallucinations, Allergy/Immunology: Negative for hives, rash, and allergies, Endocrine: Negative for neck swelling, polydipsia, polyuria, polyphagia, and marked weight changes, Hematologic/Lymphatic: Negative for swollen nodes, abnormal bleeding, and unusual bruising, Exam: 02:16 Constitutional: This is a well developed, well nourished patient who is awake, alert, angelina and in no acute distress. Head/Face: Normocephalic, atraumatic. Eyes: Pupils equal round and reactive to light, extra-ocular motions intact. Lids and lashes normal. Conjunctiva and sclera are non-icteric and not injected. Cornea within normal limits. Periorbital areas with no swelling, redness, or edema. ENT: Nares patent. No nasal discharge, no septal abnormalities noted. Tympanic membranes are normal and external auditory canals are clear. Oropharynx with no redness, swelling, or masses, exudates, or evidence of obstruction, uvula midline. Mucous membranes moist. Neck: Trachea midline, no thyromegaly or masses palpated, and no cervical lymphadenopathy. Supple, full range of motion without nuchal rigidity, or vertebral point tenderness. No Meningismus. Chest/axilla: Normal chest wall appearance and motion. Nontender with no deformity. No lesions are appreciated. Cardiovascular: Regular rate and rhythm with a normal S1 and S2. No gallops, murmurs, or rubs. Normal PMI, no JVD. No pulse deficits. Respiratory: Lungs have equal breath sounds bilaterally, clear to auscultation and percussion. No rales, rhonchi or wheezes noted. No increased work of breathing, no retractions or nasal flaring. Abdomen/GI: Soft, non-tender, with normal bowel sounds. No distension or tympany. No guarding or rebound. No evidence of tenderness throughout. Back: No spinal tenderness. No costovertebral tenderness. Full range of motion. Male : Normal genitalia with no discharge or lesions. Skin: Warm, dry with normal turgor. Normal color with no rashes, no lesions, and no evidence of cellulitis. MS/ Extremity: Pulses equal, no cyanosis. Neurovascular intact. Full, normal range of motion. Neuro: Awake and alert, GCS 15, oriented to person, place, time, and situation. Cranial nerves II-XII grossly intact. Motor strength 5/5 in all extremities. Sensory grossly intact. Cerebellar exam normal. Normal gait. Psych: Awake, alert, with orientation to person, place and time. Behavior, mood, and affect are within normal limits. 02:32 ECG was reviewed by the Attending Physician. [facility] Vital Signs: 01:30 BP 102 / 77; Pulse 130; Resp 20; Temp 98.7(O); Pulse Ox 99% on R/A; Weight 83.91 kg km8 (R); Height 5 ft. 8 in. (R); Pain 9/10; 02:20 BP 104 / 67; Pulse 102; Resp 16; Pulse Ox 100% on R/A; km8 02:30 BP 104 / 78; Pulse 101; Resp 16; Pulse Ox 98% on R/A; 8 03:00 BP 97 / 65; Pulse 90; Resp 16; Pulse Ox 97% ; [facility] 05:00 BP 109 / 78; Pulse 105 RA; Resp 16; Pulse Ox 100% ; 8 05:45 BP 126 / 77; Pulse 100; Resp 16; Pulse Ox 100% on R/A; 8 06:00 BP 132 / 80; Pulse 88; Resp 16; Pulse Ox 99% on R/A; 8 06:30 BP 109 / 71; Pulse 102; Resp 16; Pulse Ox 99% on R/A; 8 01:30 Body Mass Index 28.13 (83.91 kg, 172.72 cm) [facility] 01:30 Pain Scale: Adult km8 Karolina Coma Score: 01:30 Eye Response: spontaneous(4). Motor Response: obeys commands(6). Verbal Response: km8 oriented(5). Total: 15. MDM: 01:32 Patient medically screened. [facility] 02:18 Differential diagnosis: closed fracture, contusion, abrasion. Differential Diagnosis: angelina CVA, electrolyte abnormality, alcohol intoxication, overdose, sepsis, TIA, volume depletion. Data reviewed: vital signs, nurses notes, EMS record, lab test result(s), EKG, radiologic studies, CT scan. Consideration of Admission/Observation Escalation of care including admission/observation considered. I considered the following discharge prescriptions or medication management in the emergency department Medications were administered in the Emergency Department. See MAR. Independent interpretation of the following test(s) in the Emergency Department EKG: See my EKG interpretation above. Test considered but Not performed: MRI: no mri brain. Care significantly affected by the following chronic conditions: Hypertension, mi, seizures. 05/08 01:34 Order name: Acetaminophen; Complete Time: 02:57 [facility] 05/08 01:34 Order name: Basic Metabolic Panel; Complete Time: 02:57 [facility] 05/08 01:34 Order name: CBC with Diff; Complete Time: 05:04 [facility] 05/08 01:34 Order name: ETOH Level; Complete Time: 02:57 [facility] 05/08 01:34 Order name: Hepatic Function; Complete Time: 02:57 [facility] 05/08 01:34 Order name: PT-INR; Complete Time: 02:57 [facility] 05/08 01:34 Order name: Ptt, Activated; Complete Time: 02:57 [facility] 05/08 01:34 Order name: Salicylate; Complete Time: 02:57 [facility] 05/08 01:34 Order name: Urinalysis w/ reflexes; Complete Time: 02:34 [facility] 05/08 01:34 Order name: Urine Drug Screen; Complete Time: 02:34 [facility] 05/08 03:26 Order name: AMMONIA; Complete Time: 04:28 [facility] 05/08 04:37 Order name: CBC Smear Scan; Complete Time: 05:04 [facility] 05/08 05:08 Order name: Glucose, Ancillary Testing [facility] 05/08 01:34 Order name: Femur Right XRAY [facility] 05/08 01:34 Order name: CT Traumagram (Head C Spine CAP W Con) [facility] 05/08 01:34 Order name: EKG; Complete Time: 01:35 [facility] 05/08 01:34 Order name: EKG - Nurse/Tech; Complete Time: 02:10 [facility] 05/08 01:34 Order name: IV Saline Lock; Complete Time: 02:10 [facility] 05/08 01:34 Order name: Labs collected and sent; Complete Time: 02:10 [facility] 05/08 01:34 Order name: Suicide Screening ([place]); Complete Time: 02:10 [facility] 05/08 03:25 Order name: PO challenge: juice; Complete Time: 03:36 [facility] 05/08 04:30 Order name: Blood Glucose Level; Complete Time: 04:59 [facility] EC:32 Rate is 108 beats/min. Rhythm is regular. QRS [place] is Normal. [place] interval is normal. angelina QRS interval is normal. QT interval is normal. No Q waves. T waves are Normal. No ST changes noted. Clinical impression: Sinus tachycardia and No evidence of ischemia. Interpreted by me. Reviewed by me. Administered Medications: 02:03 Drug: NS 0.9% IV 1000 ml IV at 1 bolus Per protocol; 1000 mL bolus Route: IV; Rate: 1 ha1 bolus; Site: left antecubital; 02:03 Drug: Ativan IVP 2 mg IVP once Route: IVP; Site: left antecubital; ha1 03:03 Follow up: Response: No adverse reaction; Anxiety decreased 8 03:15 Drug: D10 in Water IVP 250 ml IVP once Route: IVP; Site: left antecubital; km8 03:36 Follow up: Response: No adverse reaction 03:58 Drug: Ativan IVP 1 mg IVP once {Note: given in CT.} Route: IVP; Site: left antecubital; 8 04:58 Follow up: Response: No adverse reaction 8 04:59 Drug: NS 0.9% IV 1000 ml IV at 1 bolus Per protocol; 1000 mL bolus Route: IV; Rate: 1 km8 bolus; Site: left antecubital; 07:20 Follow up: IV Status: Completed infusion db 04:59 Drug: NS 0.9% IV 1000 ml IV at 1 bolus Per protocol; 1000 mL bolus Route: IV; Rate: 1 km8 bolus; Site: left antecubital; 07:20 Follow up: IV Status: Completed infusion db Disposition Summary: 05/08/23 06:43 Discharge Ordered Notes: Location: Home angelina Problem: new angelina Symptoms: have improved angelina Condition: Stable angelina Diagnosis - Pain in right leg angelina - Altered mental status, unspecified angelina - Abuse of other non-psychoactive substances angelina - Hypoglycemia, unspecified angelina - Abnormal finding of blood chemistry, unspecified - elevated liver angelina enzymes,transaminases - Unspecified kidney failure angelina - Cocaine abuse angelina - Adverse effect of amphetamines angelina Followup: angelina - With: Private Physician - When: 2 - 3 days - Reason: Recheck today's complaints, Continuance of care, Re-evaluation by your physician Followup: angelina - With: Jaylen Hearn MD - When: 2 - 3 days - Reason: Recheck today's complaints, Re-evaluation by your physician Discharge Instructions: - Discharge Summary Sheet angelina - Amphetamines Use Disorder angelina - Contusion angelina - Cocaine Use Disorder angelina - Confusion angelina - Fall Prevention in the Home, Adult angelina - Musculoskeletal Pain angelina - Substance Use Disorder angelina - Supporting Someone With an Addiction angelina - Contusion, [id number]-ci-[id number] angelina - Methamphetamines Use Disorder angelina - Acute Kidney Injury, Adult angelina - Substance Use Disorder and Mental Illness angelina - Illegal Drug Use Information, Adult [facility] Forms: - Medication Reconciliation Form angelina - Thank You Letter angelina - Antibiotic Education angelina - Prescription Opioid Use angelina - Patient Portal Instructions angelina - Leadership Thank You Letter angelina - Work release form eb Signatures: Dispatcher [employer] EDThee Carrillo MD MD cha Ayala, Heidy RN RN ha1 Dia Odell RN RN km8 Jacque Telles RN db
[2023-05-08 07:53] VITALS: TEMP 98.7
[2023-05-08 08:00] VITALS: O2SAT 99
[2023-05-08 08:01] VITALS: BP 109/71
--- NOTE | 2023-05-10 12:45 | RAD REPORT ---
EXAM DESCRIPTION: CT - Head C Spine Cap W Con - 05/08/2023 7:21 am CLINICAL HISTORY: TRAUMA FALL COMPARISON: None available TECHNIQUE: Axial CT of the head obtained from the skull apex to the skull base without contrast. Axi al CT images of the chest, abdomen, and pelvis obtained following the intravenous administration of i odinated contrast. This exam was performed according to our departmental dose-optimization program, w hich includes automated exposure control, adjustment of the mA and/or kV according to patient size an d/or use of iterative reconstruction technique. FINDINGS: Head CT: No acute intracranial hemorrhage identified. No mass, mass effect, shift of the midline, abnormal ext ra-axial fluid collection or CT evidence of acute ischemic change identified. The ventricular system is unremarkable. No acute abnormalities of the supratentorial white matter, basal ganglia, cerebell um, or brainstem. Opacities in the left paranasal sinuses. Mastoid air cells are well aerated. No skull fracture identi fied. Visualized orbits and globes are unremarkable. Cervical CT : Alignment of the cervical spine is maintained without evidence of subluxation. The atlantoaxial, at lantodental, and occipitoatlantal intervals are preserved. No fracture identified. Vertebral body h eight preserved. Prevertebral soft tissues are unremarkable. Mild loss of intervertebral disc height at C5/6 with endplate spondylosis, uncovertebral spurring, an d facet arthropathy. Posterior disc bulge at this level mildly encroaches on the anterior spinal cristy l. Visualized skull base is intact. Visualized thyroid is unremarkable. No cervical lymphadenopathy. Chest: Thyroid: No abnormalities of the visualized thyroid. Great Vessels: Great vessels have normal anatomic configuration. Thoracic Aorta: No abnormalities of the thoracic aorta identified. Pulmonary arteries: No central filling defects. Heart: Coronary artery atherosclerosis. Lymph Nodes: No enlarged mediastinal lymph nodes identified. Esophagus: No abnormalities of the esophagus identified Other: No additional findings. Lungs: No airspace opacities identified. Pleura: No pleural effusion or pneumothorax. Trachea/Airways: No abnormalities of the visualized trachea or airways. Abdomen: Liver: The liver has normal size and density. No intrahepatic mass or biliary dilatation. Gallbladder: Calcified gallstones. Spleen, Pancreas, and Adrenal Glands: The spleen, pancreas, and adrenal glands are unremarkable. Kidneys: The kidneys have normal size and contour without evidence of solid mass or hydronephrosis. Vasculature: Aortoiliac atherosclerosis. IVC is unremarkable. The portal vein is patent. The proxim al visceral and renal arteries are patent. Stomach: The stomach and duodenum have normal course. Other: No free intraperitoneal air. No free fluid or lymphadenopathy. Pelvis: Bladder: Urinary bladder is unremarkable. Bowel: No dilated loops of large or small bowel. Scattered diverticula of the colon. Moderate amoun t of stool. Appendix: Normal appendix. Pelvis: Prostate is not enlarged. Bones: Mild endplate spondylosis and facet arthropathy. Disc height narrowing at L5/S1. IMPRESSION: 1. No acute intracranial abnormality identified by CT criteria 2. No acute fracture or subluxation of the cervical spine. 3. No acute traumatic injury identified in the chest, abdomen, or pelvis. 4. Multilevel degenerative change of the cervical, thoracic, and lumbar spine. 5. Cholelithiasis. 6. Diverticulosis without evidence of acute diverticulitis. 7. Coronary artery atherosclerosis. Electronically signed by: Dayo Patiño DO 05/08/2023 06:29 AM LETTERPRESS SETTER Due to temporary technical issues with the PACS/Fluency reporting system, reports are being signed by the in house radiologist without review as a courtesy to ensure prompt reporting. The interpreting r adiologist is fully responsible for the content of the report.
--- NOTE | 2023-05-10 12:55 | RAD REPORT ---
EXAM DESCRIPTION: RAD - Femur Right - 05/08/2023 3:46 am CLINICAL HISTORY: PAIN COMPARISON: None. FINDINGS: 2 views of the right femur. No acute fracture or dislocation. Normal osseous mine ralization. No radiopaque foreign bodies. IMPRESSION: No acute fracture or dislocation. Electronically signed by: Dayo Patiño DO 05/08/2023 04:09 AM SOCIAL MEDIA CONTENT SPECIALIST M Due to temporary technical issues with the PACS/Fluency reporting system, reports are being signed by the in house radiologist without review as a courtesy to ensure prompt reporting. The interpreting r adiologist is fully responsible for the content of the report.
--- NOTE | 2023-05-11 13:53 | EKG ---
Test Date: 2023-05-08 Test Time: 02:24:50 Content Publisher: DEIDRE MEASUREMENT RESULTS: Intervals: Rate: 108 MN: 134 QRSD: 94 QT: 350 QTc: 469 [place]: P: 70 MN: 134 QRS: 95 T: 37 INTERPRETIVE STATEMENTS: Sinus tachycardia Rightward axis Borderline ECG Compared to ECG 02/15/2023 11:01:31 Right-axis deviation now present Sinus rhythm no longer present Left posterior fascicular block no longer present Electronically Signed On 05-11-23 13:42:36 GAS BOOSTER ENGINEER by Bogdan Mane
== END 2023-05-08 07:47 | disposition home or self-care (01) ==
LOC: ER 01:30
DX: M79.604 Pain in right leg (principal); R41.82 Altered mental status, unspecified; T43.625A Adverse effect of amphetamines, initial encounter; N19 Unspecified kidney failure; E16.2 Hypoglycemia, unspecified; F19.10 Other psychoactive substance abuse, uncomplicated; F14.10 Cocaine abuse, uncomplicated; F12.90 Cannabis use, unspecified, uncomplicated; R74.8 Abnormal levels of other serum enzymes; I10 Essential (primary) hypertension
CPT/HCPCS: 36415; 70450; 71260; 72125; 74177; 80048; 80076; 80143; 80179; 80307; 81001; 82077; 82140; 82947; 85025; 85610; 85730; 93005; 96361; 96374; 99285; J7030; Q9967

== ENCOUNTER 2023-05-09 14:05 | Emergency (ER) | payer SELFPAY ==
--- OUTSIDE RECORDS SUMMARY | 2023-05-09 14:12 | XMS REPORT | Continuity of Care Document ---
Author Name Unknown Address [address] [place] [address] [employer] Address [address] [place] [address] [address] [place] [address] Care Team Providers Care Pull Tab Dealer Name Role Phone Unavailable Unavailable Unavailable
[2023-05-09 14:44] LABS: Lymphocytes % 38.8 % (15.3-44.8); MCV 92.4 fL (80-100); MPV 9.1 fL (7.6-11.3); Platelets 379 thou/uL (152-406); RBC Red Blood Cell Count 4.76 M/uL (4.33-5.43)
[2023-05-09 14:51] LABS: Protime INR 1.05
[2023-05-09 15:10] LABS: ALT/SGPT 147 U/L (16-61); AST/SGOT 115 U/L (15-37); Albumin 3.8 g/dL (3.4-5.0); Alkaline Phosphatase 126 U/L (45-117); BUN Blood Urea Nitrogen 20 mg/dL (7-18); Bicarbonate 17 mEq/L (21-32); Bilirubin Direct 0.4 mg/dL (0-0.2); Bilirubin Indirect, Calculated 1.5 mg/dL (0.2-0.8); Bilirubin Total 1.9 mg/dL (0.2-1.0); Glomerular Filtration Rate 56 ml/min (=/>90); Glucose Level 123 mg/dL (74-106); Potassium 3.8 mEq/L (3.5-5.1); Protein, Total 8.5 g/dL (6.4-8.2); Sodium Level 136 mEq/L (136-145)
[2023-05-09] MEDS ORDERED: NA CHLORIDE 0.9% 1,000 ML ONE (19:49)
--- NOTE | 2023-05-09 21:11 | EDPHYS ---
Physician Documentation [facility] Name: Zana Salmon Age: 43 yrs Sex: Male : 1980 Arrival Date: 05/09/2023 Time: 14:05 Bed 3 Private MD: ED Physician Doc Malhotra HPI: 05/09 14:28 This 43 yrs old Male presents to ER via EMS with complaints of AMS. ms3 14:28 43-year-old male presents via [place] [facility] after smoking synthetic. Patient denied other ms3 drug use to patient. EMS notes patient became combative in the ambulance and 5 mg of Versed IV was administered. EMS notes patient's vital signs remained stable through transport. EMS notes on their arrival patient was crawling around his apartment. Historical: - Allergies: 14:14 No Known Allergies; rs5 - PMHx: 14:10 Hepatitis; Hypertension; Myocardial infarction; Seizures; rs5 - PSHx: 14:14 None; rs5 - Immunization history:: Adult Immunizations unknown. - Social history:: Smoking status: unknown. ROS: 14:28 Unable to obtain ROS due to Patient sedated, ms3 Exam: 14:28 Constitutional: This is a well developed, well nourished patient who is awake, alert, ms3 and in no acute distress. Head/Face: Normocephalic, atraumatic. Neck: Trachea midline, no cervical lymphadenopathy. Supple, full range of motion without nuchal rigidity, or vertebral point tenderness. No Meningismus. Chest/axilla: Normal chest wall appearance and motion. Nontender with no deformity. Cardiovascular: Regular rate and rhythm with a normal S1 and S2. No gallops, murmurs, or rubs. Normal PMI, no JVD. No pulse deficits. Respiratory: Lungs have equal breath sounds bilaterally, clear to auscultation and percussion. No rales, rhonchi or wheezes noted. No increased work of breathing, no retractions or nasal flaring. Abdomen/GI: Soft, non-tender, with normal bowel sounds. No distension or tympany. No guarding or rebound. No evidence of tenderness throughout. Skin: Warm, dry with normal turgor. Normal color with no rashes, no lesions, and no evidence of cellulitis. 20:22 ECG was reviewed by the Attending Physician. ms3 Vital Signs: 14:10 BP 101 / 66; Pulse 109; Resp 18; Pulse Ox 99% on R/A; rs5 15:50 BP 103 / 75; Pulse 85; Resp 15; Pulse Ox 99% on R/A; ko1 16:33 BP 115 / 74; Pulse 79; Resp 16; Pulse Ox 100% ; ko1 18:38 BP 111 / 76; Pulse 65; Resp 16; Pulse Ox 100% ; ko1 20:18 BP 108 / 74; Pulse 62; Resp 12; Pulse Ox 100% on R/A; jb4 21:40 BP 122 / 65; Pulse 55; Resp 16; Pulse Ox 100% on R/A; jb4 MDM: 14:28 Patient medically screened. ms3 14:30 Differential Diagnosis: alcohol intoxication, overdose, psychosis. ms3 21:11 Data reviewed: vital signs, nurses notes, lab test result(s), EKG, radiologic studies. rt Consideration of Admission/Observation Escalation of care including admission/observation considered. BMP normalized after IV fluids, patient with history of hepatitis, likely attributing for transaminitis, informed patient of this regardless. He does not require mission to the hospital, had significant improvement in mental status, is without complaints at time of discharge.. I considered the following discharge prescriptions or medication management in the emergency department Medications were administered in the Emergency Department. See MAR. Care significantly affected by the following chronic conditions: Hepatitis. Counseling: I had a detailed discussion with the patient and/or guardian regarding the historical points, exam findings, and any diagnostic results supporting the discharge/admit diagnosis, lab results, the need for outpatient follow up. Response to treatment: the patient's symptoms have markedly improved after treatment. 05/09 14:13 Order name: Acetaminophen; Complete Time: 18:40 ms3 05/09 14:13 Order name: BMP; Complete Time: 18:40 ms3 05/09 14:13 Order name: CBC with Diff; Complete Time: 18:40 ms3 05/09 14:13 Order name: Ethanol; Complete Time: 18:40 ms3 05/09 14:13 Order name: Hepatic Function; Complete Time: 18:40 ms3 05/09 14:13 Order name: Protime (+inr); Complete Time: 18:40 ms3 05/09 14:13 Order name: Ptt, Activated; Complete Time: 18:40 ms3 05/09 14:13 Order name: Salicylate; Complete Time: 18:40 ms3 05/09 18:40 Order name: CK; Complete Time: 20:01 ms3 05/09 20:02 Order name: BMP: recheck after fluids; Complete Time: 21:06 rt 05/09 14:13 Order name: EKG; Complete Time: 14:14 ms3 05/09 14:13 Order name: EKG - Nurse/Tech; Complete Time: 15:16 ms3 05/09 14:13 Order name: IV Saline Lock; Complete Time: 15:16 ms3 05/09 14:13 Order name: Labs collected and sent; Complete Time: 15:16 ms3 05/09 14:13 Order name: O2 Per Protocol; Complete Time: 15:15 ms3 05/09 14:13 Order name: O2 Sat Monitoring; Complete Time: 15:15 ms3 05/09 18:41 Order name: Misc. Order: Please obtain ck level; Complete Time: 19:41 ms3 EC:22 Rate is 103 beats/min. Rhythm is regular. QRS [place] is Normal. [place] interval is normal. ms3 QRS interval is normal. Clinical impression: Sinus tachycardia. Interpreted by me. Reviewed by me. Administered Medications: 19:40 Drug: NS 0.9% IV 1000 ml IV at 1 bolus Per protocol; 1000 mL bolus Route: IV; Rate: 1 jb4 bolus; Site: left antecubital; Disposition: 05/10 14:04 Chart complete. ms3 Disposition Summary: 05/09/23 21:10 Discharge Ordered Notes: Location: Home rt Problem: new rt Symptoms: have improved rt Condition: Stable rt Diagnosis - Altered mental status, resolved rt - Transaminitis rt Followup: rt - With: Private Physician - When: 5 - 6 days - Reason: Discharge Instructions: - Discharge Summary Sheet rt - Confusion rt - Liver Function Tests rt Forms: - Medication Reconciliation Form rt - Thank You Letter rt - Antibiotic Education rt - Prescription Opioid Use rt - Patient Portal Instructions rt - Leadership Thank You Letter rt Signatures: Dispatcher [employer] Damon Ba RN RN jb4 Gurdeep Joel DO DO ms3 Doc Malhotra MD MD rt Sai King RN RN rs5 Corrections: (The following items were deleted from the chart) 05/09 14:15 14:14 [place] Meds: None; rs5 rs5
--- NOTE | 2023-05-09 21:11 | ER ---
Nurse's Notes [facility] Name: Zana Salmon Age: 43 yrs Sex: Male : 1980 Arrival Date: 05/09/2023 Time: 14:05 Bed 3 Private MD: Diagnosis: Altered mental status, resolved;Transaminitis Presentation: 05/09 14:10 Chief complaint: EMS states: Pt smoked synthetic marijuana and friends called because rs5 he was acting "weird", pt was unresponsive on arrival but became combative when IV was inserted on scene, 5 of Versed was given and pt is now asleep. Coronavirus screen: At this time, the client does not indicate any symptoms associated with coronavirus-19. Ebola Screen: No symptoms or risks identified at this time. Initial Sepsis Screen: Does the patient meet any 2 criteria? Altered Mental Status. HR > 90 bpm. Yes Does the patient have a suspected source of infection? No. Patient's initial sepsis screen is negative. Risk Assessment: Do you want to hurt yourself or someone else? Unable to obtain. Onset of symptoms was May 09, 2023. 14:10 Method Of Arrival: EMS: [facility] rs5 14:10 Acuity: DELANO 3 rs5 14:16 Care prior to arrival: Medication(s) given: 5 mg Versed IV initiated. 20 GA, in the rs5 left antecubital area. Triage Assessment: 14:14 General: Appears Pt is asleep. Behavior is quiet. Pain: Unable to use pain scale. rs5 Historical: - Allergies: 14:14 No Known Allergies; rs5 - PMHx: 14:10 Hepatitis; Hypertension; Myocardial infarction; Seizures; rs5 - PSHx: 14:14 None; rs5 - Immunization history:: Adult Immunizations unknown. - Social history:: Smoking status: unknown. Screenin:10 [facility] ED Fall Risk Assessment (Adult) History of falling in the last 3 months, rs5 including since admission No falls in past 3 months (0 pts) Confusion or Disorientation No (0 pts) Intoxicated or Sedated Yes (3 pts) Impaired Gait No (0 pts) Mobility Assist Device Used No (0 pt) Altered Elimination No (0 pt) Score/Fall Risk Level 3 or more points = High Risk Oriented to surroundings, Maintained a safe environment, Hourly rounding (assess needs \\T\\ fall precautionary measures) done. Abuse screen: Denies threats or abuse. Nutritional screening: No deficits noted. Tuberculosis screening: No symptoms or risk factors identified. Assessment: 14:10 General: Appears in no apparent distress. comfortable, Behavior is calm. Pain: Denies rs5 pain. Neuro: Neuro: Level of Consciousness is lethargic, Oriented to person, place, time, situation. Cardiovascular: Heart tones S1 S2 present Rhythm is sinus tachycardia. Respiratory: Airway is patent Respiratory effort is even, unlabored, Respiratory pattern is regular, symmetrical, Breath sounds are clear bilaterally. GI: Abdomen is round non-distended, Bowel sounds present X 4 quads. Abd is soft and non tender X 4 quads. : No signs and/or symptoms were reported regarding the genitourinary system. EENT: No signs and/or symptoms were reported regarding the EENT system. Derm: Skin is intact, Skin is dry, Skin is normal, Skin temperature is warm. Musculoskeletal: Circulation, motion, and sensation intact. Range of motion: intact in all extremities. 15:20 Reassessment: No changes from previously documented assessment. rs5 16:34 Reassessment: Pt in bed, eyes closed, respirations even unlabored, normal sinus rhythm rs5 noted on monitor, side rails up x2, call light within reach. 18:38 Reassessment: No changes from previously documented assessment. rs5 20:16 Reassessment: Pt resting in bed with eyes closed, respirations are even and unlabored jb4 with no s/s of pain or distress noted. 21:40 Reassessment: Patient appears in no apparent distress at this time. Patient and/or jb4 family updated on plan of care and expected duration. Pain level reassessed. Patient is alert, oriented x 3, equal unlabored respirations, skin warm/dry/pink. Vital Signs: 14:10 BP 101 / 66; Pulse 109; Resp 18; Pulse Ox 99% on R/A; rs5 15:50 BP 103 / 75; Pulse 85; Resp 15; Pulse Ox 99% on R/A; ko1 16:33 BP 115 / 74; Pulse 79; Resp 16; Pulse Ox 100% ; ko1 18:38 BP 111 / 76; Pulse 65; Resp 16; Pulse Ox 100% ; ko1 20:18 BP 108 / 74; Pulse 62; Resp 12; Pulse Ox 100% on R/A; jb4 21:40 BP 122 / 65; Pulse 55; Resp 16; Pulse Ox 100% on R/A; jb4 ED Course: 14:08 Patient arrived in ED. ko1 14:10 Sai King, RN is Primary Nurse. rs5 14:10 Patient has correct armband on for positive identification. Fall risk band placed. rs5 Placed in gown. Bed in low position. Call light in reach. Side rails up X2. 14:12 Gurdeep Joel DO is Attending Physician. ms3 14:14 Triage completed. rs5 14:30 Maintain EMS IV. Dressing intact. Good blood return noted. Site clean \\T\\ dry. Gauge \\T\\ ko 1 site: 20g L AC. 16:38 No provider procedures requiring assistance completed. rs5 19:00 Attending Physician role handed off by Gurdeep Joel DO rt 19:00 Doc Malhotra MD is Attending Physician. rt 20:31 BMP: recheck after fluids Sent. jr12 21:40 IV discontinued, intact, bleeding controlled, No redness/swelling at site. Pressure jb4 dressing applied. Administered Medications: 19:40 Drug: NS 0.9% IV 1000 ml IV at 1 bolus Per protocol; 1000 mL bolus Route: IV; Rate: 1 jb4 bolus; Site: left antecubital; Medication: 16:38 VIS not applicable for this client. rs5 Outcome: 21:10 Discharge ordered by MD. rt 21:40 Discharged to home ambulatory, jb4 21:40 Condition: stable 21:40 Discharge instructions given to patient, Instructed on discharge instructions, follow up and referral plans. Demonstrated understanding of instructions, follow-up care, 21:40 Patient left the ED. jb4 Signatures: Damon Baird RN RN jb4 Gurdeep Joel DO DO ms3 Jess Hernandez RN RN ko1 Doc Malhotra MD MD rt Sai King RN RN rs5 Claritza De Leon jr12 Corrections: (The following items were deleted from the chart) 14:15 14:14 Home Meds: None; rs5 rs5 16:34 15:20 General: Appears rs5 rs5 18:39 17:40 Reassessment: No changes from previously documented assessment. rs5 rs5 20:18 20:16 BP 130 / 79; Pulse 92bpm; Resp 14bpm; Pulse Ox 97% RA; jb4 jb4
[2023-05-09 21:49] VITALS: O2SAT 100
[2023-05-09 21:53] VITALS: BP 122/65
--- NOTE | 2023-05-11 13:49 | EKG ---
Test Date: 2023-05-09 Test Time: 14:21:47 Vegetable Tier: JEN MEASUREMENT RESULTS: Intervals: Rate: 103 WA: 134 QRSD: 98 QT: 370 QTc: 484 [place]: P: 70 WA: 134 QRS: 80 T: 39 INTERPRETIVE STATEMENTS: Sinus tachycardia Otherwise normal ECG Compared to ECG 05/08/2023 02:24:50 Right-axis deviation no longer present Electronically Signed On 05-11-23 13:41:33 SENIOR ELECTRONICS TECHNICIAN by Bogdan Mane
== END 2023-05-09 21:40 | disposition home or self-care (01) ==
LOC: ER 14:05
DX: R41.82 Altered mental status, unspecified (principal); R74.01 Elevation of levels of liver transaminase levels
CPT/HCPCS: 36415; 80048; 80076; 80143; 80179; 82077; 82550; 85025; 85610; 85730; 93005; 99284; J7030

== ENCOUNTER → 2023-07-25 | Emergency (ER) | payer OTHER, SELFPAY ==
[~2023-07-25] MED LIST: LIDOCAINE 1% MPF 5 ML VIAL ONE
--- OUTSIDE RECORDS SUMMARY | 2023-07-25 01:44 | XMS REPORT | Continuity of Care Document ---
Author Name Unknown Address [address] [place] [address] thconnect Address [address] [place] [address] [address] [place] [address] Care Team Providers Care Manager Research Name Role Phone Unavailable Unavailable Unavailable
--- NOTE | 2023-07-25 02:55 | EDPHYS ---
Physician Documentation [facility] Name: Zana Salmon Age: 43 yrs Sex: Male : 1980 Arrival Date: 07/25/2023 Time: 01:42 Bed 20 Private MD: ED Physician Doc Malhotra HPI: 07/25 03:45 This 43 yrs old Male presents to ER via Ambulatory with complaints of Insect rt Bite. 03:45 Patient presents to the ED with reported insect bite to the left elbow. He states that rt he squeezed and pus out of it, but, continues to swell, has worsening erythema surrounding it. Denies fever, chills, acute complaints, symptoms are moderate in severity, no other aggravating or alleviating factors.. Historical: - Allergies: 02:05 No Known Allergies; lg3 - Home Meds: 02:05 None [Active]; lg3 - PMHx: 02:05 Hepatitis; Hypertension; Myocardial infarction; Seizures; lg3 - PSHx: 02:05 cardiac stent (Seizures); lg3 - Immunization history:: Adult Immunizations up to date, Client reports having NOT received the Covid vaccine. Flu vaccine is not up to date. - Social history:: Smoking status: Patient denies any tobacco usage or history of. Patient uses alcohol, occasionally. Patient/guardian denies using street drugs, IV drugs. ROS: 03:45 Constitutional: Negative for fever, chills, and weight loss, Cardiovascular: Negative rt for chest pain, palpitations, and edema, Respiratory: Negative for shortness of breath, cough, wheezing, and pleuritic chest pain, Abdomen/GI: Negative for abdominal pain, nausea, vomiting, diarrhea, and constipation, Neuro: Negative for headache, weakness, numbness, tingling, and seizure, 03:45 Skin: Positive for abscess, cellulitis, Exam: 03:45 Constitutional: This is a well developed, well nourished patient who is awake, alert, rt and in no acute distress. Head/Face: Normocephalic, atraumatic. Chest/axilla: Normal chest wall appearance and motion. Nontender with no deformity. No lesions are appreciated. Cardiovascular: Regular rate and rhythm with a normal S1 and S2. No gallops, murmurs, or rubs. Normal PMI, no JVD. No pulse deficits. Respiratory: Lungs have equal breath sounds bilaterally, clear to auscultation and percussion. No rales, rhonchi or wheezes noted. No increased work of breathing, no retractions or nasal flaring. Abdomen/GI: Soft, non-tender, with normal bowel sounds. No distension or tympany. No guarding or rebound. No evidence of tenderness throughout. Neuro: Awake and alert, GCS 15, oriented to person, place, time, and situation. Cranial nerves II-XII grossly intact. Motor strength 5/5 in all extremities. Sensory grossly intact. Cerebellar exam normal. Normal gait. 03:45 Musculoskeletal/extremity: Apparent abscess with surrounding cellulitis just proximal to the left elbow. Is able to flex and extend the elbow without difficulty. There is no apparent joint swelling.. Vital Signs: 02:04 BP 125 / 88; Pulse 79; Resp 17 S; Temp 98(O); Pulse Ox 100% on R/A; Weight 79.38 kg lg3 (R); Height 5 ft. 8 in. (R); Pain 8/10; 02:04 Body Mass Index 26.61 (79.38 kg, 172.72 cm) lg3 02:04 Pain Scale: Adult lg3 Procedures: 03:45 I \T\ D: Incision and drainage was performed for an abscess of the left Arm Prepped with rt alcohol, Anesthetized with 2 ml's 1% Lidocaine. Incised with #11 blade. Drained moderate amount purulent fluid. Dressing: sterile 4x4 gauze, the patient tolerated the procedure well. MDM: 02:11 Patient medically screened. rt 03:45 Differential Diagnosis Abscess, cellulitis. Data reviewed: vital signs, nurses notes. rt Test considered but Not performed: Labs: Well-appearing, stable vital signs, no SIRS criteria met, does not require labs. Counseling: I had a detailed discussion with the patient and/or guardian regarding the historical points, exam findings, and any diagnostic results supporting the discharge/admit diagnosis, the need for outpatient follow up, to return to the emergency department if symptoms worsen or persist or if there are any questions or concerns that arise at home. Response to treatment: the patient's symptoms have markedly improved after treatment. 07/25 02:18 Order name: Incision \T\ Drainage Setup; Complete Time: 02:26 rt Administered Medications: 02:59 Drug: Lidocaine Infiltration (1 %) 5 ml 5 ml Infiltration once; to bedside {Note: tm6 administered by .} Volume: 5 ml; Route: Infiltration; Disposition Summary: 07/25/23 02:54 Discharge Ordered Notes: Location: Home rt Problem: new rt Symptoms: have improved rt Condition: Stable rt Diagnosis - Cutaneous abscess to left arm rt Followup: rt - With: Private Physician - When: 5 - 6 days - Reason: Discharge Instructions: - Discharge Summary Sheet rt - Skin Abscess rt Forms: - Medication Reconciliation Form rt - Thank You Letter rt - Antibiotic Education rt - Prescription Opioid Use rt - Patient Portal Instructions rt - Leadership Thank You Letter rt Prescriptions: - Doxycycline Hyclate 100 mg Oral Tablet - take 1 tablet ORAL route every 12 hours; 20 tablet; Refills: 0, Product rt Selection Permitted Signatures: Felecia Summers RN RN lg3 Doc Malhotra MD MD rt Rosalie Milton RN RN tm6
--- NOTE | 2023-07-25 02:55 | ER ---
Nurse's Notes [facility] Name: Zana Salmon Age: 43 yrs Sex: Male : 1980 Arrival Date: 07/25/2023 Time: 01:42 Bed 20 Private MD: Diagnosis: Cutaneous abscess to left arm Presentation: 07/25 02:04 Chief complaint: Patient states: unknown insect bite X4 days on left elbow. swelling, lg3 redness and pain increasing. pain 8/10. Coronavirus screen: Client denies travel out of the [place] in the last 14 days. At this time, the client does not indicate any symptoms associated with coronavirus-19. Ebola Screen: No symptoms or risks identified at this time. Initial Sepsis Screen: Does the patient meet any 2 criteria? No. Patient's initial sepsis screen is negative. Does the patient have a suspected source of infection? No. Patient's initial sepsis screen is negative. Risk Assessment: Do you want to hurt yourself or someone else? Patient reports no desire to harm self or others. Onset of symptoms is unknown. 02:04 Method Of Arrival: Ambulatory lg3 02:04 Acuity: DELANO 3 lg3 Triage Assessment: 02:05 Bite description: bite sustained to left elbow by an unknown animal, animal lg3 information: vaccination(s) is unknown. General: Appears in no apparent distress. uncomfortable, Behavior is calm, cooperative. Pain: Complains of pain in left elbow. EENT: No deficits noted. No signs and/or symptoms were reported regarding the EENT system. Neuro: No deficits noted. [place] Agitation-Sedation Scale (RASS): 0 - Alert and Calm Level of Consciousness is awake, alert, obeys commands, Oriented to person, place, time, situation. Cardiovascular: No deficits noted. Denies chest pain, shortness of breath, Capillary refill < 3 seconds Clubbing of nail beds is absent JVD is absent Patient's skin is warm and dry. Respiratory: No deficits noted. Airway is patent Respiratory effort is even, unlabored, Respiratory pattern is regular, symmetrical. GI: No deficits noted. No signs and/or symptoms were reported involving the gastrointestinal system. : No deficits noted. No signs and/or symptoms were reported regarding the genitourinary system. Derm: Skin is intact, is healthy with good turgor, Skin is dry, Skin is normal, Skin temperature is warm Wound noted left elbow. Musculoskeletal: No deficits noted. No signs and/or symptoms reported regarding the musculoskeletal system. Circulation, motion, and sensation intact. Range of motion: intact in all extremities, Swelling present in left elbow. Historical: - Allergies: 02:05 No Known Allergies; lg3 - Home Meds: 02:05 None [Active]; lg3 - PMHx: 02:05 Hepatitis; Hypertension; Myocardial infarction; Seizures; lg3 - PSHx: 02:05 cardiac stent (Seizures); lg3 - Immunization history:: Adult Immunizations up to date, Client reports having NOT received the Covid vaccine. Flu vaccine is not up to date. - Social history:: Smoking status: Patient denies any tobacco usage or history of. Patient uses alcohol, occasionally. Patient/guardian denies using street drugs, IV drugs. Screenin:14 [facility] ED Fall Risk Assessment (Adult) History of falling in the last 3 months, tm6 including since admission No falls in past 3 months (0 pts) Confusion or Disorientation No (0 pts) Intoxicated or Sedated No (0 pts) Impaired Gait No (0 pts) Mobility Assist Device Used No (0 pt) Altered Elimination No (0 pt) Score/Fall Risk Level 0 - 2 = Low Risk Oriented to surroundings, Maintained a safe environment. Abuse screen: Denies threats or abuse. Denies injuries from another. Nutritional screening: No deficits noted. Tuberculosis screening: No symptoms or risk factors identified. Assessment: 02:14 General: Appears uncomfortable, Behavior is calm, cooperative. Pain: Complains of pain tm6 in left arm Pain currently is 8 out of 10 on a pain scale. Quality of pain is described as burning, Pain began 2-3 days ago. Neuro: Level of Consciousness is awake, alert, obeys commands, Oriented to person, place, time, situation. Cardiovascular: Capillary refill < 3 seconds Patient's skin is warm and dry. Respiratory: Airway is patent Respiratory effort is even, unlabored, Respiratory pattern is regular, symmetrical. GI: Abdomen is flat, non-distended. : No signs and/or symptoms were reported regarding the genitourinary system. EENT: No signs and/or symptoms were reported regarding the EENT system. Derm: Skin has lesions on insect bite/abscess on left forearm Abscess located on left arm is quarter sized, has purulent drainage, is hot to touch, is red, is raised, was lanced by patient prior to arrival, Reports burning, pain that is 8 out of 10 on a pain scale. Musculoskeletal: No signs and/or symptoms reported regarding the musculoskeletal system. Vital Signs: 02:04 BP 125 / 88; Pulse 79; Resp 17 S; Temp 98(O); Pulse Ox 100% on R/A; Weight 79.38 kg lg3 (R); Height 5 ft. 8 in. (R); Pain 8/10; 02:04 Body Mass Index 26.61 (79.38 kg, 172.72 cm) lg3 02:04 Pain Scale: Adult 3 ED Course: 01:43 Patient arrived in ED. jj6 01:44 Doc Malhotra MD is Attending Physician. rt 02:05 Triage completed. lg3 02:05 Arm band placed on right wrist. lg3 02:08 Rosalie Milton, RN is Primary Nurse. tm6 02:14 Patient has correct armband on for positive identification. Bed in low position. Call tm6 light in reach. Side rails up X 1. Provided Education on: plan of care. Client placed on continuous cardiac and pulse oximetry monitoring. NIBP monitoring applied. Pulse ox on. NIBP on. Noise minimized. Lights dimmed. Warm blanket given. 03:00 Assist provider with I \T\ D: of an abscess on left forearm Set up I\T\D tray. Performed by tm 6 Rosalie Milton RN Dressing with 4X4s, Patient tolerated well. 03:03 Patient did not have IV access during this emergency room visit. tm6 Administered Medications: 02:59 Drug: Lidocaine Infiltration (1 %) 5 ml 5 ml Infiltration once; to bedside {Note: tm6 administered by MD.} Volume: 5 ml; Route: Infiltration; Medication: 02:14 VIS not applicable for this client. tm6 Outcome: 02:54 Discharge ordered by MD. rt 03:02 Discharged to home ambulatory, tm6 03:02 Condition: stable 03:02 Discharge instructions given to patient, Instructed on discharge instructions, follow up and referral plans. medication usage, wound care, Demonstrated understanding of instructions, follow-up care, medications, wound care, Prescriptions given X 1, 03:03 Patient left the ED. tm6 Signatures: Felecia Summers RN RN lg3 Mariza Benites jj6 Doc Malhotra MD MD rt Rosalie Milton RN RN tm6
[2023-07-25 05:13] VITALS: BP 125/88; TEMP 98; O2SAT 100
== END ==
LOC: ER 01:42
PROC: 0H9EXZZ Drainage of Left Lower Arm Skin, External Approach (ICD-10-PCS; principal; 2023-07-25)
DX: L02.414 Cutaneous abscess of left upper limb (principal)
CPT/HCPCS: 99284; J2001